=== PATIENT | female | born 1985 | race Caucasian/White ===

== ENCOUNTER 2023-01-03 18:33 | Outpatient (REF) | payer OTHER, SELFPAY ==
[2023-01-09 09:09] LABS: Age Gdln ACOG Testing Note (.); HPV Aptima Negative (Negative); IGP, Aptima HPV, rfx 16/18,45 Note (.)
== END 2023-01-03 18:34 | disposition home or self-care (01) ==
LOC: LAB 18:33
PROVIDERS: Visit Provider Obstetrics & Gynecology
DX: Z01.419 Encounter for gynecological examination (general) (routine) without abnormal findings (principal)
CPT/HCPCS: 87624; G0145

== ENCOUNTER 2025-01-07 14:03 | Outpatient (OUT) | payer OTHER, SELFPAY ==
--- OUTSIDE RECORDS SUMMARY | 2025-01-07 12:09 | XMS_ITS | Clinical Summary ---
Author Organization [facility] Healthcare Address [address] [place] [address] Care Team Providers Care Assessment Counselor Name Role Phone Bi Ledesma MD Primary Care Provider [phone] Allergies Active AllergyReactionsCriticalityNoted DateCommentsCat QhbmrgEyjepnd00/27/2023 Pollen NtiqbnnUmokvon25/27/2023 Medications MedicationSigDispense QuantityRefillsLast FilledStart DateEnd DateStatus busPIRone (Buspar) 10 MG tablet Take 10 mg by mouth in the morning and 10 mg before bedtime.Active FLUoxetine (PROzac) 20 MG capsule TAKE THREE CAPSULES BY MOUTH ONCE DAILYActive Family History Medical HistoryRelationNameCommentsDiabetesFatherHypertensionFatherMental illnessFatherCancerMaternal GrandfatherCancerPaternal GrandfatherCancerPaternal GrandmotherRelationNameStatusCommentsFatherAliveMaternal GrandfatherMotherAlive Paternal GrandfatherPaternal GrandmotherSon1 Social History Tobacco UseTypesPacks/DayYears UsedDateSmoking Tobacco: FormerCigarettes Tobacco Cessation:Counseling Given: Not Answered AUDIT-CAnswerDate RecordedQ1: How often do you have a drink containing alcohol? Monthly or less01/02/2023Q2: How many drinks containing alcohol do you have on a typical day when you are drinking?1 or Frequency of Binge DrinkingNot on file01/02/2023CommentsUnknownSex and Gender InformationValueDate RecordedSex Assigned at BirthNot on fileLegal OxxCgyvpa24/15/2023 11:08 PM EDT Gender IdentityNot on fileSexual OrientationNot on file Last Filed Vital Signs Vital SignReadingTime TakenCommentsBlood Kvkuxfev288/7411/04/2022 2:04 PM EDT Pulse--Temperature--Respiratory Rate--Oxygen Saturation--Inhaled Oxygen Concentration--Jzglxz61.5 kg (151 lb)01/03/2023 2:04 PM GKKTrmvdk844.4 cm (5') 03/29/2020 12:00 PM ESTBody Mass Index29.49003/29/2020 12:00 PM EST Plan of Treatment Not on file Insurance Care Teams Team MemberRelationshipSpecialtyStart DateEnd Date Bi Ledesma MD [facility] Pykqtvsc38/2/23
--- OUTSIDE RECORDS SUMMARY | 2025-01-07 12:09 | XMS_ITS | Clinical Summary ---
Author Organization [facility] Address [id number] [place] [address] Care Team Providers Care Radio Station Manager Name Role Phone Bi Ledesma DO Primary Care Provider [phone] Allergies Active AllergyReactionsCriticalityNoted DateCommentsCat Loczjp4205/11/2021ollen Opsrmcva60/10/2022 Medications MedicationSigDispense QuantityRefillsLast FilledStart DateEnd DateStatus calcium carbonate (OS-CONNOR) 600 mg (1,500 mg) tablet Take 600 mg by mouth in the morning and 600 mg in the evening. Take with meals. Active thiamine HCl (VITAMIN B-1) 100 mg tablet Take 100 mg by mouth in the morning.Active multivitamin capsule Take 1 capsule by mouth in the morning.Active busPIRone (BUSPAR) 10 mg tablet TAKE ONE TABLET BY MOUTH TWICE A DAY 60 tablet 01/04/2023ctive FLUoxetine (PROzac) 20 mg capsule TAKE THREE CAPSULES BY MOUTH ONCE DAILY 90 capsule 01/04/2023ctive montelukast (SINGULAIR) 10 mg tablet TAKE ONE TABLET BY MOUTH DAILY 30 tablet 01/04/2023ctive Active Problems ProblemNoted DateDiagnosed DatePre-operative cardiovascular examination 05/12/2021MI 50.0-59.9, adult05/12/2021 Social History Tobacco UseTypesPacks/DayYears UsedDateSmoking Tobacco: NeverSmokeless Tobacco: Never Tobacco Cessation:Counseling Given: No ChildcareAnswerDate AvpvzphbRiczhdnwzIvyrnic07/12/2019EmploymentAnswerDate QqkulcmpRzkxvwtqjxRzaichg03/12/2019CommentsUnknownSex and Gender InformationValueDate RecordedSex Assigned at BirthNot on fileLegal SexFemale 10/07/2014 11:43 AM EDTGender IdentityNot on fileSexual OrientationNot on file Last Filed Vital Signs Vital SignReadingTime TakenCommentsBlood Muyiftxt073/8003 10:00 AM EST Wlayu439905/12/2021 10:00 AM ESTTemperature--Respiratory Rate--Oxygen Saturation-- Inhaled Oxygen Concentration--Addoeb267.9 kg (271 lb)05/12/2021 10:00 AM EST Wdkylw344.4 cm (5')05/12/2021 10:00 AM ESTBody Mass Index52.9305/12/2021 10:00 AM EST Plan of Treatment Health MaintenanceDue DateLast DoneCommentsDepression Wwlwocehw00/27/1996Tobacco Mxarhanmn15/27/1996Adult BMI Hgudhhxck49/27/2002Pap Smear2004Influenza Uwnoepp34DTaP,Tdap and Td Vaccines (7 - Td or Tdap)07/09/2027 07/08/2017, 10/26/2002, 10/17/1988, Additional history exists Medical Devices Not on file Insurance Care Teams Team MemberRelationshipSpecialtyStart DateEnd Bi Ledesma DO [address] [facility], [place] [address] PCP - GeneralFamily Pdnkgalj50/21/22
--- OUTSIDE RECORDS SUMMARY | 2025-01-07 12:09 | XMS_ITS | Patient Health Record ---
Author Organization [facility] in [place] Address [address] [place] [address] Care Team Providers Care Surface Ship Usw Supervisor Name Role Phone Grazyna Armendariz Primary Care Provider [phone] Allergies No Known Allergies Reason For Referral No Information Medications Medication SIG (Take, Route, Frequency, Duration) Notes Start Date End Date Status Lexapro 20 MG 1 tablet Orally Once a day; Dura tion: 30 days 5ActiveSingulair 10 MG1 tablet Orally Once a day at HS; Duration: 30 days5ActiveMultivitaminActiveZyrTEC AllergyActiveSymbicort 160-4.5 MCG/ACT2 inhalations Inhalation BID; Duration: 30 days5Active hydrOXYzine HCl 25 MG1 tablet as needed Orally BID; Duration: 30 daysas needed for heveybt39/10/2025ActiveAlbuterol Sulfate HFA 108 (90 Base) MCG/ACT1 puff as needed Inhalation every 4 hrs5Active Social History Tobacco Use: Social History Observation Description Date Details (start date - stop date) Never Smoker NA - NA Tobacco Control (Standard) Question Answer Notes Tobacco use: Nonsmoker AUDIT-C (Standard) Question Answer Notes Did you have a drink containing alcohol in the p ast year? No Ifthtn1FuxpcedzjeauwjXguddere Problems Problem Type SNOMED Code ICD Code Onset Dates Problem Status W/U Status Risk Notes Problem Asthma (393966413) Asthma (J45.909) ActiveconfirmedProblemSeasonal allergy (708301753)Seasonal allergies (J30.2) ActiveconfirmedProblemMixed anxiety and depressive disorder (580952443)Anxiety and depression (F41.8)Activeconfirmed Vital Signs Heart Rate 62 /min 01/07/2025 Lojyvrjd25 %01/07/2025lood pressure lyuprqzoz78 mm Hg01/07/20256473Iafqjw21 in 01/07/2025lood pressure moucsweb191 mm Hg01/07/20257574Qbfxjc126 lbs103/09/2024MI 28.51 kg/m201/07/2025 Encounters Encounter Location Date Provider Diagnosis [address] [address] 10/09/2024 Grazynachey Sotelomer [address] [address] 01/07/2025Pamela Cramer[address] [address]/10/2025Pamela CramerAnxiety and depression F41.8 ; Asthma J45.909 ; Seasonal allergies J30.2 and Marijuana smoker F12.[address] [address]/14/2025 Grazyna CramerAsthma J45.909 and Anxiety and depression F41.[address] [address]/06/2025Pamela CramerIntoxication by drug F19.929 and Anxiety and depression F41.8 Assessments Encounter Date Diagnosis (ICD Code) Assessment Notes Treatment Notes Treatment Clinical Notes Section Notes 09/10/2024 Anxiety and depression (ICD-10 - F41.8) discussed counseling discussed lifestyle habits to support good mental health handouts given and referral sheet given for counseling fu 4 weeks, sooner if needed denies SI thinks buried childhood trauma 09/10/2024sthma (ICD-10 - J45.909)10/15/2024sthma (ICD-10 - J45.909)01/07/2025 Intoxication by drug (ICD-10 - F19.929)01/07/2025nxiety and depression (ICD-10 - F41.8)mood ok on tbbskyr4210/15/2024nxiety and depression (ICD-10 - F41.8) 09/10/2024Seasonal allergies (ICD-10 - J30.2)continue OTC qekjaw9309/10/2024 Marijuana smoker (ICD-10 - F12.90)had medical card?01/07/2025Other likely drink was spiked recheck K continue monitor if sx would recur fu for more testing Plan Of Treatment Pending Test Test Name Order Date CMP (COMP MET MCCORD) w/eGFR CKD-EPI 2024 Next Appt Details Provider Name:Grazyna lucia, 01/14/2025 11:00:00 AM, [address] [facility], [place], [address], Insurance Providers Payer Name Payer Address Payer Phone Subscriber Number Group Number Insured Name Patient Relationship to Insured Coverage Start Date Coverage End Date [employer] [address] ATTN [place], [place] [id number] Rajwinder Anders - patient is the insured Medical (General) History Surgical History Surgery Date(Month/Year) gastric sleeve tubal ligationgallbladder removedc section
--- OUTSIDE RECORDS SUMMARY | 2025-01-07 12:10 | XMS_ITS | CCD ---
Author Organization [facility] Care Team Providers Care President & Founder Name Role Phone JOSE, DR BI Thao Primary Care Unavailable KARASIK, DR MONTERROSO Consulting Unavailable KARASIK, DR MONTERROSO Admitting Unavailable KARASIK, DR MONTERROSO Attending Unavailable FURLONG, DR BI Thao Primary Care Unavailable KARASIK, DR MONTERROSO Consulting Unavailable KARASIK, DR MONTERROSO Admitting Unavailable KARASIK, DR MONTERROSO Attending Unavailable KARASIK, DR MONTERROSO Attending Unavailable FURLONG, DR BI Thao Primary Care Unavailable KARASIK, DR MONTERROSO Consulting Unavailable KARASIK, DR MONTERROSO Admitting Unavailable CANDY REYNOSO Attending Unavailable EDGARDO, CANDY Wilson Consulting Unavailable CANDY REYNOSO Admitting Unavailable FURLONG, DR BI Thao Primary Care Unavailable RICO, TEVIN Consulting Unavailable TEVIN GÓMEZ Admitting Unavailable FURLONG, DR BI Thao Primary Care Unavailable RICO, TEVIN Attending Unavailable KUNBong, DR OSMAR Torres Admitting Unavailable KUNBong, DR OSMAR Torres Attending Unavailable NIRU, DR OSMAR Torres Consulting Unavailable PHILLYLOGOGO, DR BI Thao Primary Care Unavailable NO FAMILY, PHYSICIAN Primary Care Provider Unava ilable DO Kiko Sanchez Emergency Provider [phone] Kiko Sanchez Admitting Unavailable Kiko Sanchez Attending Unavailable NO FAMILY, PHYSICIAN Primary Care Unavailable Unavailable Primary Care Provider UnavailPATY Mandujano Attending Unavailable Medications Current Medications MedicationDrug Class(es)DatesSig (Normalized)Sig (Original)cephalexin 500 mg oral capsule (1 source)Cephalosporin AntibacterialStart: 60-51-3346lelc 500 mg by mouth every eight hoursCephalexin Active 500 MG PO Every 8 hours 30 10 September 19, 2023 12:00amFLUoxetine 20 mg oral capsule (2 sources)Serotonin Reuptake InhibitorStart: 33-99-7997ocdb 1 capsule by mouth once dailyFluoxetine (Prozac) 20 mg capsule Active 20 MG PO Daily July 08, 2023 12:00am Completed/Discontinued Medications MedicationDrug Class(es)DatesSig (Normalized)Sig (Original)amoxicillin 875 mg oral tablet (1 source)Penicillin-class AntibacterialStart: 07-08-2023 End: 98-89-1263prph 875 mg by mouth twice dailyAmoxicillin Discontinued 875 MG PO Twice daily 20 July 08, 2023 12:00am September 19, 2023 6:38pmLORazepam 0.5 mg oral tablet (1 source)BenzodiazepineStart: 01-03-2025 End: 61-91-6394mdgf 1 dose by mouth once1 mg, Oral, ONCE, 1 dose, On 01/03/25 at 0100Start: 01-03-2025 End: 02-02-1587iqgq 1 dose by mouth once1 mg, Oral, ONCE, 1 dose, On 01/03/25 at 0100meclizine hydrochloride 12.5 mg oral tablet (1 source)AntiemeticStart: 01-03-2025 End: 43-03-1326qggw 1 dose by mouth once25 mg, Oral, ONCE, 1 dose, On 01/03/25 at 0100Start: 01-03-2025 End: 80-37-9278jxyy 1 dose by mouth once25 mg, Oral, ONCE, 1 dose, On 01/03/25 at 92375 ml ondansetron 2 mg/ml injection (1 source)Serotonin-3 Receptor AntagonistStart: 01-03-2025 End: mg, IntraVENous, ONCE, 1 dose, On 01/03/25 at 0100Start: 01-03-2025 End: mg, IntraVENous, ONCE, 1 dose, On 01/03/25 at 0100 microencapsulated potassium chloride 20 meq extended release oral tablet (2 sources)Start: 01-03-2025 End: 52-12-170183 mEq, IntraVENous, EVERY HOUR, 2 doses, First dose on 01/03/25 at 0115, Last dose on 01/03/25 at 0200, at 100 mL/hr, Potassium chloride doses are limited to a maximum of six consecutive dosesbefore reassessment of laboratory values is needed.Start: 01-03-2025 End: mEq, Oral, ONCE, 1 dose, On 01/03/25 at 0115, Do not crush or break. Do not crush, chew, or suck on tablet. Tablet may also be broken in half and each half swallowed separately. Problems Active Problems Problem ClassificationProblemDateDocumented DateEpisodic/ChronicDisorders of teeth and jaw (2 sources)Infection of tooth; Translations: [Periapical abscess without sinus] 00-90-2296NkclwghzUqmac and electrolyte disorders (2 sources)Hypokalemia; Translations: [Hypokalemia]Onset: EpisodicImmunizations and screening for infectious disease (6 sources)Encounter for screening for infections with a predominantly sexual mode of transmission; Translations: [Encounter for screening for human papillomavirus (HPV)]Onset: 19-19-5862GsjivvjkIspesg and vomiting (2 sources)Nausea and vomiting; Translations: [Nausea with vomiting, unspecified]Onset: 582945-29-5027YkkmashiCavjc skin disorders (1 source)Rash and other nonspecific skin eruption; Translations: [Rash and other nonspecific skin eruption]Onset: 94-03-8725AbrluwgtHhemdkvij; thrombophlebitis and thromboembolism (1 source)Phlebitis; Translations: [Phlebitis and thrombophlebitis of unspecified site]59-01-8828FfjrluxaFqumyjzkurrx (3 sources)CONTACT W/AND (SUSP) EXPOS COVID-19; Translations: [CONTACT W/AND (SUSP) EXPOS COVID-19]Onset: 03-02-2021 Past or Other Problems Problem ClassificationProblemDateDocumented DateEpisodic/ChronicOther female genital disorders (4 sources)Other specified noninflammatory disorders of vagina; Translations: [OTH SPEC NONINFLAMMATORY D/O VAGINA]Onset: 99-64-6387LbocjyllVtoev screening for suspected conditions (not mental disorders or infectious disease) (5 sources)Encounter for screening for malignant neoplasm of cervix; Translations: [Encounter for observation for other suspected diseases and conditions ruled out]Onset: 50-74-1488WceutiktIsxefuotcdvk (1 source)CONTACT W/AND (SUSP) EXPOS COVID-19; Translations: [CONTACT W/AND (SUSP) EXPOS COVID-19]Onset: 02-27-2021 Results Test NameValueInterpretationReference RangeFacilityAcetaminophenon 01-03-2025 Acetaminophen [Mass/Vol]ug/zAEfr97-71Mmlho Oroville HospitalComment on above:Performed By: #### HCG, ALCB, BMP, ACET, SALI, CDP #### [facility] [address] [place] [address] Dye Tank Tender: Mateo Ren MDAcetaminophen Levelon 81-34-1831Revfnlpvjtmmt [Mass/Vol]ug/mLLow10 - 30 ug/mLBon [facility] OhioInterpretation and review of laboratory resultsAbnormalBon [facility] [place] ResearchBMPon 28-74-2691Empnb gap [Moles/Vol]19 mmol/LHigh9 - 16 mmol/LBon [facility] HealthCalcium [Mass/Vol] 8.7 mg/dL8.6 - 10.4 mg/dLBon [facility] HealthChloride [Moles/Vol]104 mmol/L 98 - 107 mmol/LBon [facility] HealthCO2 [Moles/Vol]17 mmol/LLow20 - 31 mmol/L Bon [facility] HealthCreatinine [Mass/Vol]0.9 mg/dL0.6 - 0.9 mg/dLBon [facility] [place] ResearchEst, Glom Filt Rate82- PINFBon [facility] OhioComment on above: These results are not intended for use in patients <18 years of age. eGFR results are calculated without a race factor using the 2020 CKD-EPI equation. Careful clinical correlation is recommended, particularly when comparing to results calculated using previous equations. The CKD-EPI equation is less accurate in patients with extremes of muscle mass, extra-renal metabolism of creatine, excessive creatine ingestion, or following therapy that affects renal tubular secretion. Glucose [Mass/Vol]103 mg/oSZemh24 - 99 mg/dLBon [facility] ArizonaPANTA Systems HealthPotassium [Moles/Vol]3.0 mmol/LLow3.7 - 5.3 mmol/LBon [facility] HealthSodium [Moles/Vol]140 mmol/L136 - 145 mmol/LBon [facility] HospitalUrea nitrogen [Mass/Vol]12 mg/dL6 - 20 mg/dLBon [facility] HospitalBasic Metabolic Profon 78-45-9869Jmkfd gap [Moles/Vol]19 mmol/LHigh9-16[facility] Comment on above:Performed By: #### HCG, ALCB, BMP, ACET, SALI, CDP #### [facility] [address] [place] [address] Dye Tank Tender: CLAIRE Tangalcium [Mass/Vol]8.7 mg/dLNormal8.6-10.4City HospitalComment on above:Performed By: #### HCG, ALCB, BMP, ACET, SALI, CDP #### [facility] [address] [place] [address] Dye Tank Tender: CLAIRE Tanghloride [Moles/Vol]104 mmol/TBdkdzm71-602BqixmCity HospitalComment on above:Performed By: #### HCG, ALCB, BMP, ACET, SALI, CDP #### [facility] [address] [place] [address] Dye Tank Tender: Mateo Ren MDCO2 [Moles/Vol]17 mmol/BLav61-59YpwwkCity HospitalComment on above:Performed By: #### HCG, ALCB, BMP, ACET, SALI, CDP #### [facility] [address] [place] [address] Dye Tank Tender: CLAIRE Tangreatinine [Mass/Vol]0.9 mg/dLNormal0.6-0.9City HospitalComment on above:Performed By: #### HCG, ALCB, BMP, ACET, SALI, CDP #### [facility] [address] [place] [address] Dye Tank Tender: Mateo Ren MDGFR/1.73 sq M.predicted among non-blacks MDRD (S/P/Bld) [Vol rate/Area]82 mL/min/{1.73_m2}Normal>60City HospitalComment on above:Result Comment: These results are not intended for use in patients <18 years of age. eGFR results are calculated without a race factor using the 2020 CKD-EPI equation. Careful clinical correlation is recommended, particularly when comparing to results calculated using previous equations. The CKD-EPI equation is less accurate in patients with extremes of muscle mass, extra-renal metabolism of creatine, excessive creatine ingestion, or following therapy that affects renal tubular secretion.Performed By: #### HCG, ALCB, BMP, ACET, SALI, CDP #### [facility] [address] [place] [address] Dye Tank Tender: Mateo Ren MDGlucose [Mass/Vol]103 mg/xXCbhw40-51GumyvIndian Valley HospitalComment on above:Performed By: #### HCG, ALCB, BMP, ACET, SALI, CDP #### [facility] [address] [place] [address] Dye Tank Tender: CATHLEEN Tangotassium [Moles/Vol]3.0 mmol/LLow3.7-5.3MIndian Valley HospitalComment on above:Performed By: #### HCG, ALCB, BMP, ACET, SALI, CDP #### [facility] [address] [place] [address] Dye Tank Tender: REYNA Tangodium [Moles/Vol]140 mmol/MNxnhpi158-375OemznCity HospitalComment on above:Performed By: #### HCG, ALCB, BMP, ACET, SALI, CDP #### [facility] [address] [place] [address] Dye Tank Tender: Mateo Ren MDUrea nitrogen [Mass/Vol]12 mg/dLNormal6-20City HospitalComment on above:Performed By: #### HCG, ALCB, BMP, ACET, SALI, CDP #### [facility] [address] [place] [address] Dye Tank Tender: Mateo Ren [facility] with Auto Differentialon 44-39-5158Yxryplsdt (Bld) [#/Vol]0.12 10*3/uLBon [facility] Hospitaly HealthBasophils/100 WBC (Bld)2 %0 - 2 %[facility]y HealthEosinophils (Bld) [#/Vol]0.22 10*3/uLBon [facility] HealthEosinophils/100 WBC (Bld)3 %1 - 4 %[facility] Health Erythrocyte distribution width (RBC) [Ratio]12.7 %11.8 - 14.4 %[facility]y HealthHematocrit (Bld) [Volume fraction]35.0 %Low36.3 - 47.1 %Bon [facility]ey HealthHemoglobin (Bld) [Mass/Vol]12.1 g/dL11.9 - 15.1 g/dLBon [facility]ours MercSentara CarePlex HospitalImmature granulocytes (Bld) [#/Vol][facility] HealthImmature granulocytes/100 WBC (Bld)0 %0[facility]y HealthInterpretation and review of laboratory resultsAbnormalBon [facility] HealthLymphocytes/100 WBC (Bld)32 %24 - 43 %[facility]y HealthLymphocytes/100 WBC (Bld)2.49 %[facility] Hospitaly [facility] DaytonH (RBC) [Entitic mass]29.4 pg25.2 - 33.5 pgBon Secours [facility] Hospitaly [facility] DaytonHC (RBC) [Mass/Vol]34.6 g/dL28.4 - 34.8 g/dLBon Secours [facility] Hospitaly [facility] DaytonV (RBC) [Entitic vol]85.2 fL82.6 - 102.9 fLBon Secours [facility] HealthMonocytes/100 WBC (Bld)9 %3 - 12 %[facility] HealthMonocytes/100 WBC (Bld)0.68 %[facility]y HealthNeutrophils/100 WBC (Bld)54 %36 - 65 %[facility] HealthNucleated RBC/100 WBC (Bld) [Ratio]0.0 %0.0 per 100 WBCBon [facility] HospitalPlatelet mean volume (Bld) [Entitic vol]10.8 fL8.1 - 13.5 fLBon [facility] HospitalPlatelets (Bld) [#/Vol]315 10*3/uLBon [facility] HospitalRBC (Bld) [#/Vol]4.11 10*6/uL3.95 - 5.11 m/uLBon [facility] HospitalSegmented neutrophils/100 WBC (Bld)4.29 %Bon [facility] HospitalWBC other (Bld) [#/Vol] 7.8Bon [facility] - Sioux FallsCBC with Diffon 01-03-2025 Abs. Basophil0.12 k/uLNormal0.00-0.20City HospitalComment on above:Performed By: #### HCG, ALCB, BMP, ACET, SALI, CDP #### [facility] [address] [place] [address] Dye Tank Tender: Nata Tang.Imm.Granulocyte<0.47Jsjocy7.00-0.30City HospitalComment on above:Performed By: #### HCG, ALCB, BMP, ACET, SALI, CDP #### [facility] [address] [place] [address] Dye Tank Tender: Nata Tang.Neutrophil (Seg)4.29 k/uLNormal1.50-8.10 City HospitalComment on above:Performed By: #### HCG, ALCB, BMP, ACET, SALI, CDP #### [facility] [address] [place] [address] Dye Tank Tender: Mateo Ren MDBasophils/100 WBC (Bld)2 %Normal0-2MercPetaluma Valley HospitalComment on above:Performed By: #### HCG, ALCB, BMP, ACET, SALI, CDP #### [facility] [address] [place] [address] Dye Tank Tender: Mateo Ren MDEosinophils (Bld) [#/Vol]0.22 10*3/uLNormal 0.00-0.44City HospitalComment on above:Performed By: #### HCG, ALCB, BMP, ACET, SALI, CDP #### [place] [address] Dye Tank Tender: Mateo Ren MDEosinophils/100 WBC (Bld)3 %Normal1-4City HospitalComment on above:Performed By: #### HCG, ALCB, BMP, ACET, SALI, CDP #### [facility] [address] [place] [address] Dye Tank Tender: Mateo Ren MDErythrocyte distribution width (RBC) [Ratio]12.7 %Yrihfd84.8-14.4City HospitalComment on above:Performed By: #### HCG, ALCB, BMP, ACET, SALI, CDP #### [place] [address] Dye Tank Tender: Mateo Ren MDHematocrit (Bld) [Volume fraction]35.0 %Low 36.3-47.1MIndian Valley HospitalComment on above:Performed By: #### HCG, ALCB, BMP, ACET, SALI, CDP #### [facility] [address] [place] [address] Dye Tank Tender: Mateo Ren MDHemoglobin (Bld) [Mass/Vol]12.1 g/dLNormal 11.9-15.1MIndian Valley HospitalComment on above:Performed By: #### HCG, ALCB, BMP, ACET, SALI, CDP #### [facility] [address] [place] [address] Dye Tank Tender: Mateo Ren MDImmature granulocytes/100 WBC (Bld)0 %Normal0 City HospitalComment on above:Performed By: #### HCG, ALCB, BMP, ACET, SALI, CDP #### [facility] [address] [place] [address] Dye Tank Tender: Chilango Tangmphocytes (Bld) [#/Vol]2.49 10*3/uLNormal 1.10-3.70City HospitalComment on above:Performed By: #### HCG, ALCB, BMP, ACET, SALI, CDP #### [facility] [address] [place] [address] Dye Tank Tender: Dheeraj Tanghocytes/100 WBC (Bld)32 %Ksqpji74-30QppedCity HospitalComment on above:Performed By: #### HCG, ALCB, BMP, ACET, SALI, CDP #### [facility] [address] [place] [address] Dye Tank Tender: ESTEBAN Tang (RBC) [Entitic mass]29.4 ziAowujh27.2-33.5 City HospitalComment on above:Performed By: #### HCG, ALCB, BMP, ACET, SALI, CDP #### [facility] [address] [place] [address] Dye Tank Tender: ESTEBAN TangC (RBC) [Mass/Vol]34.6 g/iBVmxusy90.4-34.8 City HospitalComment on above:Performed By: #### HCG, ALCB, BMP, ACET, SALI, CDP #### [facility] [address] [place] [address] Dye Tank Tender: AGUEDA Tang (RBC) [Entitic vol]85.2 kMBifjno55.6-102.9 City HospitalComment on above:Performed By: #### HCG, ALCB, BMP, ACET, SALI, CDP #### [facility] [address] [place] [address] Dye Tank Tender: SATHYA Tangonocytes (Bld) [#/Vol]0.68 10*3/uLNormal 0.10-1.20City HospitalComment on above:Performed By: #### HCG, ALCB, BMP, ACET, SALI, CDP #### [facility] [address] [place] [address] Dye Tank Tender: SATHYA Tangonocytes/100 WBC (Bld)9 %Normal3-12City HospitalComment on above:Performed By: #### HCG, ALCB, BMP, ACET, SALI, CDP #### [address] [address] Dye Tank Tender: Lu Tangutrophil (Seg)54 %Ecocsj92-79QtjdxCity HospitalComment on above:Performed By: #### HCG, ALCB, BMP, ACET, SALI, CDP #### [address] [address] Dye Tank Tender: Mateo Ren MDNRBC Automated0.0 per 100 WBCNormal0.0City HospitalComment on above:Performed By: #### HCG, ALCB, BMP, ACET, SALI, CDP #### [address] [address] Dye Tank Tender: CATHLEEN Tanglatelet mean volume (Bld) [Entitic vol]10.8 fL Normal8.1-13.5City HospitalComment on above:Performed By: #### HCG, ALCB, BMP, ACET, SALI, CDP #### [facility] [address] [place] [address] Dye Tank Tender: CATHLEEN Tanglatelets (Bld) [#/Vol]315 10*3/lEKnyosh290-983 City HospitalComment on above:Performed By: #### HCG, ALCB, BMP, ACET, SALI, CDP #### [address] [address] Dye Tank Tender: Mateo Ren [facility] ([facility]) [#/Vol]4.11 10*6/uLNormal3.95-5.11 City HospitalComment on above:Performed By: #### HCG, ALCB, BMP, ACET, SALI, CDP #### [address] [address] Dye Tank Tender: Mateo Ren [facility]DMETROPOL[facility]AN [facility] ([facility]) [#/Vol]7.8 10*3/uLNormal3.5-11.3MIndian Valley HospitalComment on above:Performed By: #### HCG, ALCB, BMP, ACET, SALI, CDP #### [address] [address] Dye Tank Tender: Mateo Ren MDDrug Scr, Abuse, Uron 01-03-2025 Cannabinoid(s),UrPositiveAbrmalNEGCity HospitalComment on above:Result Comment: Cutoff: 50 ng/mlPerformed By: #### AME #### [address] [address] Dye Tank Tender: Mateo Ren MDInterpretive InfoAssay provides rapid clinical screening only. Presumptive positive results [facility] HospitalComment on above:Result Comment: legal purposes should be confirmed by another method. To request confirmation, please call the lab within 7 days of sample submission.Performed By: #### AME #### [facility] [address] [place] [address] Dye Tank Tender: Mateo Ren MDAmphetamine(s),UrNegativeNormalNEGCity HospitalComment on above:Result Comment: Cutoff: 1000 ng/mL Performed By: #### AME #### [address] [address] Dye Tank Tender: Mateo Ren MDBarbiturate(s),UrNegativeNormalNEGCity HospitalComment on above:Result Comment: Cutoff: 200 ng/ml Performed By: #### AME #### [address] [address] Dye Tank Tender: Mateo Ren MDBenzodiazepine(s)NegativeNormalNEGCity HospitalComment on above:Result Comment: Cutoff: 200 ng/ml Performed By: #### AME #### [address] [address] Dye Tank Tender: CLAIRE Tangocaine MetaboliteNegativeAultman Orrville HospitalComment on above:Result Comment: Cutoff: 300 ng/ml Performed By: #### AME #### [address] [address] Dye Tank Tender: Monica Tangtanyl, UrineNegativeNormalNEGCity HospitalComment on above:Result Comment: Cutoff: 5 ng/mlPerformed By: #### AME #### [address] [address] Dye Tank Tender: SATHYA Tangethadone Ql (U)NegativeNormalNEGCity HospitalComment on above:Result Comment: Cutoff: 300 ng/ml Performed By: #### AME #### [address] [address] Dye Tank Tender: Mateo Ren MDOpiate(s), UrNegativeNoalNEGCity HospitalComment on above:Result Comment: Cutoff: 300 ng/mlPerformed By: #### AME #### [address] [address] Dye Tank Tender: Mateo Ren MDOxycodone, UrineNegativeNormalNEGCity HospitalComment on above:Result Comment: Cutoff: 100 ng/ml Performed By: #### AME #### [facility] [address] [place] [phone] Dye Tank Tender: CATHLEEN Tanghencyclidine, UrNegativeNormalNEGCity HospitalComment on above:Result Comment: Cutoff: 25 ng/mlPerformed By: #### AME #### [facility] [address] [id number] Dye Tank Tender: Mateo Ren MDEthanolon 87-80-7680Ejdwbth percent0.049 %High NINF - 0.010 %Bon [facility] HospitalEthanolamine [Mass/Vol]49 mg/dLHighNINF - 10 mg/dLBon [facility] HospitalEthanol Alcoholon 91-76-2955Axylvys [Mass/Vol]49 mg/dLHigh<10City HospitalComment on above:Performed By: #### HCG, ALCB, BMP, ACET, SALI, CDP #### [facility] [address] [place] [phone] Dye Tank Tender: Mateo Ren MDEthanol percent0.049 %High<0.010City HospitalComment on above:Performed By: #### HCG, ALCB, BMP, ACET, SALI, CDP #### [facility] [place] [address] [phone] Dye Tank Tender: Mateo Ren MDHCG Qualitative, Serumon 45-12-6491HSS ( test) QlNegativeNEGATIVELifepoint HealthComment on above: Specimens with hCG levels near the threshold of the test (25 mIU/mL) may give a negative or indeterminate result. In such cases, another test should be performed with a new specimen in 48-72 hours. If early is suspected clinically in this setting, correlation with quantitative serum b-hCG level is suggested. [facility] has confirmed the use of plasma for this test. This has not been cleared or approved by the U.S. Food and Drug Administration. The FDA has determined that such clearance is not necessary. Bon [facility] HospitalHCG Screen, Bloodon 98-83-7587MAT Screen, BloodNegative NormalNEGMerMercy Medical Center Merced Community CampusComment on above:Result Comment: Specimens with hCG levels near the threshold of the test (25 mIU/mL) may give a negative or indeterminate result. In such cases, another test should be performed with a new specimen in 48-72 hours. If early is suspected clinically in this setting, correlation with quantitative serum b-hCG level is suggested. [facility] has confirmed the use of plasma for this test. This has not been cleared or approved by the U.S. Food and Drug Administration. The FDA has determined that such clearance is not necessary.Performed By: #### HCG, ALCB, BMP, ACET, SALI, CDP #### [facility] [address] [place] [address] Dye Tank Tender: Mateo Ren MDNo Panel Informationon 34-86-8468Cfi [facility] HealthInterpretation and review of laboratory resultsAbnormalBon SecFirelands Regional Medical CenterBon [facility] HospitalSalicylateon 59-18-9814Hnzgxzqozvq [Mass/Vol]mg/dL0.0 - 10.0 mg/dLBon [facility]ours [facility]cy HealthSalicylate<0.5Normal 0.0-10.0City HospitalComment on above:Performed By: #### HCG, ALCB, BMP, ACET, SALI, CDP #### [facility] [address] [place] [address] Dye Tank Tender: Mateo Ren MDUrine Drug Screenon 50-27-8154Abpbxhbkqtni Ql (U)NegativeNEGATIVEBon SecT[facility] HealthComment on above:Cutoff: 1000 ng/mL Barbiturates Screen Ql (U)NegativeNEGATIVEBon [facility]ours [facility]cy HealthComment on above:Cutoff: 200 ng/mlBenzodiazepines Ql (U)NegativeNEGATIVEBon [facility] Hospitaly HealthComment on above:Cutoff: 200 ng/mlCannabinoids Screen Ql (U)Positive AbnormalNEGATIVEBon [facility]ours [facility] HealthComment on above:Cutoff: 50 ng/mlCocaine Ql (U)NegativeNEGATIVEBon [facility] HospitalComment on above:Cutoff: 300 ng/mlfentaNYL Ql (U)NegativeNEGATIVEBon [facility] HospitalComment on above: Cutoff: 5 ng/mlInterpretation and review of laboratory resultsAbnormalBon [facility] HospitalMethadone Ql (U)NegativeNEGATIVESentara [facility] Health Comment on above:Cutoff: 300 ng/mlOpiates Screen Ql (U)NegativeNEGATIVEBon [facility] HospitalComment on above:Cutoff: 300 ng/mloxyCODONE Ql (U)Negative NEGATIVEBon [facility] HospitalComment on above:Cutoff: 100 ng/mlPhencyclidine Ql (U)NegativeNEGATIVERetreat Doctors' Hospitalment on above:Cutoff: 25 ng/ml Test InformationAssay provides rapid clinical screening only. Presumptive positive results for legal purposes should be confirmed by another method. To request confirmation, please call the lab within 7 days of sample submission.Bon [facility] - Sioux FallsCHLAMYDIA/GONOCOCCUS JUVE (SWAB/URINE/PAPon 31-14-5352Yjuoimiws trachomatis, NAANegativeNormalNegativeOhio State Health SystemComment on above:Performed By: #### CT/NGNA #### [facility] [address] [place] [address] Dr. Ivonne MoralesNeisseria gonorrhoeae, NAANegativeNormalNegativeOhio State Health SystemComment on above:Performed By: #### CT/NGNA #### [facility] [address] [place] [address] Dr. Ivonne MoralesVAGINITIS/VAGINOSIS DNA PROBEon 49-43-9313Gxylopq speciesNegative NormalNegativeOhio State Health SystemComment on above:Performed By: #### VAGINT #### [facility] [address] [place] [address] Dr. Ivonne Gallardoerellsherwin vaginalisNegativeNormalNegativeOhio State Health System Comment on above:Performed By: #### VAGINT #### [facility] [address] [place] [address] Dr. Ivonne Gruberhomonas vaginalisNegativeNormalNegativeOhio State Health System Comment on above:Performed By: #### VAGINT #### [facility] [address] [address] [address] Ivonne Parsons ACOG PANEL 2: 30 to 63on 06-14-2021..NormalOhio State Health SystemComment on above:Result Comment: Performed at: WBPerformed By: #### CVDTBH, CVDAGS #### [facility] [address] [place] [address] Osmany KarenAge Gdln ACOG Jxrcpja29-39VzhzujOikCincinnati VA Medical CenterComment on above:Performed By: #### CVDTBH, CVDAGS #### [facility] [address] [place] [address] Osmany KarenDIAGNOSIS:CommentSalem Regional Medical CenterComment on above:Result Comment: NEGATIVE FOR INTRAEPITHELIAL LESION OR MALIGNANCY. Performed at: WBPerformed By: #### CVDTBH, CVDAGS #### [facility] [address] [place] [address] Osmany KarenHPV AptimaNegativeNormalNegDiley Ridge Medical CenterComment on above:Result Comment: This nucleic acid amplification test detects fourteen high-risk HPV types (16,18,31,33,35,39,45,51,52,56,58,59,66,68) without differentiation. Performed at: =GPerformed By: #### CVDTBH, CVDAGS #### [facility] [address] [place] [address] Osmany KarenMethodology:CommentNoCincinnati VA Medical CenterComment on above: Result Comment: This liquid based ThinPrep(R) pap test was screened with the use of an image guided system. Performed at: WBPerformed By: #### CVDTBH, CVDAGS #### [facility] [address] [place] [address] Osmany KarenNote:CommentSalem Regional Medical CenterComascension borgess allegan hospital on above:Result Comment: The Pap smear is a screening test designed to aid in the detection of premalignant and malignant conditions of the uterine cervix. It is not a diagnostic procedure and should not be used as the sole means of detecting cervical cancer. Both false-positive and false-negative reports do occur. . Performed at: WBPerformed By: #### CVDTBH, CVDAGS #### [facility] [address] [place] [address] Osmany KarenPerformed by:CommentSalem Regional Medical CenterComascension borgess allegan hospital on above: Result Comment: Stephanie Ballard, [employer]ss Architect (ASCP) Performed at: WBPerformed By: #### CVDTBH, CVDAGS #### [facility] [address] [place] [address] Osmany KarenSpecimen adequacy:[facility] on above:Result Comment: Satisfactory for evaluation. No endocervical component is identified. Performed at: WBPerformed By: #### CVDTBH, CVDAGS #### [facility] [address] [place] [address] Osmany KarenCHLAMYDIA/GONOCOCCUS JUVE (SWAB/URINE/PAPon 78-66-7711Fpztcwevw trachomatis, NAANegativeNormalNegativeOhio State Health SystemComment on above: Performed By: #### CT/NGNA #### [facility] [address] [place] [address] Dr. Ivonne MoralesNeisseria gonorrhoeae, NAANegativeNormalNegativeThe [facility] DaytonComment on above:Performed By: #### CT/NGNA #### [facility] [address] [place] [address] Dr. Ivonne MoralesVAGINITIS/VAGINOSIS DNA PROBEon 80-54-0640Eohuopd speciesNegative NormalNegativeThe [facility] DaytonComment on above:Performed By: #### VAGINT #### [facility] [address] [place] [address] Dr. Ivnone Cruzdnerella vaginalisPositiveAbnormalNegativeOhio State Health SystemComment on above:Performed By: #### VAGINT #### [facility] [address] [place] [address] Dr. Ivonne MoralesTrichomonas vaginalisNegativeNormalNegativeOhio State Health System Comment on above:Performed By: #### VAGINT #### [facility] [address] [address] [address] Coronado ChangEXTRA URINE SPECIMENon 09-59-3944WLFXDWWTzwxlbCqlnc Diagnostics Comment on above:Result Comment: An extra specimen was received with no test requested. The specimen will be maintained in storage in case additional testing is needed. Please call the client service department for further assistance. NO COLLECTION DATE RECEIVED. WE HAVE USED THE DATE THE SPECIMEN WAS RECEIVED BY THIS LABORATORY THE COLLECTION DATE. IF THIS IS INCORRECT, PLEASE CONTACT CLIENT SERVICES. PHONE NUMBER: [phone] By: #### XUPB #### [facility] [address] [employer]: Ana Ocampo M.D. #### [id number] #### [facility]/[address] [place], [place] [employer] Feeder: Kiko Goyal M.D.,PhDEXTRA URINE SPECIMENNormalQuest DiagnosticsComment on above:Performed By: #### XUPB #### [facility] [address] [employer]: Ana Ocampo M.D. #### [id number] #### [facility]/[place] [address] [place], [place] [employer] Feeder: Kiko Goyal M.D.,PhDSTI INCREASED RISK PANELon 05-02-2021 ASSAY DETAILSNormalQuest DiagnosticsComment on above:Result Comment: TEST NOT PERFORMED No specimen received.Performed By: #### XUPB #### [facility] [address] [employer]: Ana Ocampo M.D. #### [id number] #### [facility]/[place] [address] [place], [place] [employer] Feeder: Kiko Goyal M.D.,PhDCHLAMYDIA TRACHOMATIS RNA, TMA, UROGENITALNormalQuest DiagnosticsComment on above:Result Comment: URINE MUST BE SUBMITTED IN AN APTIMA TEST NOT PERFORMED No suitable specimen received. Please review the test requirements at [email or web address] By: #### XUPB #### [facility] [address] [place] [id number] [employer]: Ana Ocampo M.D. #### [id number] #### [facility]/[address] [place], [place] [employer] Feeder: Kiko Goyal M.D.,PhDMYCOPLASMA GENITALIUM, rRNA, TMANormal [facility] DiagnosticsComment on above:Result Comment: URINE NOT ACCEPTABLE TEST NOT PERFORMED No specimen received.Performed By: #### XUPB #### [facility] [address] [address] [facility] [address] [place] [id number] [employer]: Ana Ocampo M.D. #### [id number] #### [facility]/[address] [place], [place] [employer] Feeder: Kiko Goyal M.D.,PhDSURESWAB(R) TRICHOMONAS VAGINALIS RNA, QL, TMANormalQuest DiagnosticsComment on above:Result Comment: TEST NOT PERFORMED No specimen received.Performed By: #### XUPB #### [facility] [place] [id number] [employer] Machine Feeder: Ana Ocampo M.D. #### [id number] #### [facility]/[place] [id number] [facility] [place], [place] [employer] Feeder: Kiko Goyal M.D.,PhDCOMPREHENSIVE METABOLIC PANELon 27-08-8730Kvpuyqg [Mass/Vol]3.9 g/dLNormal3.6-5.1Quest DiagnosticsComment on above:Performed By: #### 23730, 7600 #### [facility] of [address], [address] [place] [address] [employer] Feeder: Jorge Byers MDAlbumin/Globulin [Mass ratio]1.4 {ratio}Normal 1.0-2.5Quest DiagnosticsComment on above:Performed By: #### 36418, 7600 #### [facility] of [address], [address] [place] [address] [employer] Feeder: Jorge Byers MDALP [Catalytic activity/Vol]60 U/VHzhjkm73-820 [facility] DiagnosticsComment on above:Performed By: #### 97174, 7600 #### [facility] of [address], [address] [place] [address] [employer] Feeder: Jorge Byers MDALT [Catalytic activity/Vol]10 U/LNormal6-29 [facility] DiagnosticsComment on above:Performed By: #### 85042, 7600 #### [facility] of [place] [address] [employer] Feeder: Jorge Byers MDAST [Catalytic activity/Vol]13 U/PPbpkej09-61 [facility] DiagnosticsComment on above:Performed By: #### 02174, 7600 #### [facility] of [place] [address] [employer] Feeder: Jorge Byers MDBilirubin [Mass/Vol]0.4 mg/dLNormal0.2-1.2 Quest DiagnosticsComment on above:Performed By: #### 25764, 7600 #### [facility] of [address], [address] [place] [address] [employer] Feeder: Jorge Byers MDBUN/CREATININE RATIONOT APPLICABLENormal6-22 [facility] DiagnosticsComment on above:Performed By: #### 49643, 7600 #### [facility] of [place] [address] [employer] Feeder: Jorge Byers MDCalcium [Mass/Vol]8.8 mg/dLNormal8.6-10.2Quest DiagnosticsComment on above:Performed By: #### 70094, 7600 #### [facility] of [address], [address] [place] [address] [employer] Feeder: Jorge Byers MDChloride [Moles/Vol]107 mmol/ECphaaw03-362 [facility] DiagnosticsComment on above:Performed By: #### 41480, 7600 #### [facility] of [address], [address] [place] [address] [employer] Feeder: Jorge Byers MDCO2 [Moles/Vol]23 mmol/XCnvgta04-89Lyuim DiagnosticsComment on above:Performed By: #### 10412, 7600 #### [facility] of [place] [address] [employer] Feeder: Jorge RANGELreatinine [Mass/Vol]0.70 mg/dLNormal0.50-1.10 [facility] DiagnosticsComment on above:Performed By: #### 37324, 7600 #### [facility] of [address], [address] [place] [address] [employer] Machine Feeder: Jorge BolesFR NON-AFR. HNIWDUXP125 mL/min/1.32y7Kdnlur> OR = 60Quest DiagnosticsComment on above:Performed By: #### 70368, 7600 #### [facility] of [place] [address] [employer] Feeder: Jorge Byers MDGFR/1.73 sq M.predicted among blacks MDRD (S/P/Bld) [Vol rate/Area]127 mL/min/{1.73_m2}Normal> OR = 60[facility] Comment on above:Performed By: #### 04863, 7600 #### [facility] of [place] [address] [employer] Feeder: Jorge Byers MDGlobulin (S) [Mass/Vol]2.8 g/dLNormal1.9-3.7 Quest DiagnosticsComment on above:Performed By: #### 01745, 7600 #### [facility] of [place] [address] [employer] Feeder: Jorge Byers MDGlucose [Mass/Vol]87 mg/fNWiellw28-45Qkiyl DiagnosticsComment on above:Result Comment: Fasting reference intervalPerformed By: #### 02797, 7600 #### [facility] of [address], [address] [place] [address] [employer] Feeder: Jorge Byers MDPotassium [Moles/Vol]4.2 mmol/LNormal3.5-5.3 [facility] DiagnosticsComment on above:Performed By: #### 17565, 7600 #### [facility] of [place] [address] [employer] Feeder: Jorge Byers MDProtein [Mass/Vol]6.7 g/dLNormal6.1-8.1Quest DiagnosticsComment on above:Performed By: #### 92656, 7600 #### [facility] of [address], [address] [place] [address] [employer] Feeder: Jorge Byers MDSodium [Moles/Vol]138 mmol/VUznqjp662-951Aueub DiagnosticsComment on above:Performed By: #### 85429, 7600 #### [facility] of [place] [address] [employer] Feeder: Jorge Byers MDUrea nitrogen [Mass/Vol]11 mg/dLNormal7-25 Quest DiagnosticsComment on above:Performed By: #### 30141, 7600 #### [facility] of [place] [address] [employer] Feeder: Jorge Byers MDLIPID PANEL, STANDARDon 17-72-6235Ydjrgwcemmb [Mass/Vol]152 mg/dLNormal<200Quest DiagnosticsComment on above:Order Comment: FASTING:YES FASTING: YESPerformed By: #### 16560, 7600 #### [facility] [place] [address], [address] [employer] Machine Feeder: Jorge RANGELholesterol in HDL [Mass/Vol]54 mg/dLNormal> OR = 50Quest DiagnosticsComment on above:Order Comment: FASTING:YES FASTING: YESPerformed By: #### 04390, 7600 #### [facility] [address], [address] [place] [address] [employer] Feeder: Jorge RANGELholesterol in LDL [Mass/Vol]81 mg/dLNormal [facility] DiagnosticsComment on above:Order Comment: FASTING:YES FASTING: YESResult Comment: Reference range: <100 Desirable range <100 mg/dL for primary prevention; <70 mg/dL for patients with CHD or diabetic patients with > or = 2 CHD risk factors. LDL-C is now calculated using the Avtar calculation, which is a validated novel method providing better accuracy than the Friedewald equation in the estimation of LDL-C. Mariano PÉREZ et al. ANGELA. 2013;310(19): 7157-7992 (http://education.[employer]yl[employer]/faq/LOE117)Performed By: #### 63425, 7600 #### [facility] [address], [address] [place] [address] [employer] Machine Feeder: Jorge Munguia.total/Cholesterol in HDL [Mass ratio]2.8 {ratio}Normal<5.0Quest DiagnosticsComment on above:Order Comment: FASTING:YES FASTING: YESPerformed By: #### 30115, 7600 #### [facility] [address], [address] [place] [address] [employer] Machine Feeder: Jorge VALLEJO HDL CRLPBTQAPNA78 mg/dL (calc)Normal<130 [facility] DiagnosticsComment on above:Order Comment: FASTING:YES FASTING: YESResult Comment: For patients with diabetes plus 1 major ASCVD risk factor, treating to a non-HDL-C goal of <100 mg/dL (LDL-C of <70 mg/dL) is considered a therapeutic option.Performed By: #### 94658, 7600 #### [facility] [address], [address] [place] [address] [employer] Feeder: Jorge Byers MDTriglyceride [Mass/Vol]85 mg/dLNormal<150Quest DiagnosticsComment on above:Order Comment: FASTING:YES FASTING: YESPerformed By: #### 99011, 7600 #### [facility] [address], [address] [place] [address] [employer] Feeder: Jorge Byers MDCovid-19 PCR (CVDTB)on 37-35-3850DXOI-CoV-2 (COVID-19) RNA JUVE+probe Ql (Unsp spec)Not detectedNormalNOT DETECTEDThe [facility] DaytonComment on above:Result Comment: This test is not yet approved or cleared by the [place] FDA. When there are no FDA-approved or cleared tests available, and other criteria are met, FDA can make tests available under an emergency access mechanism called an Emergency Use Authorization (EUA). The EUA for this test is supported by the [place] of Health and Human Service's (HHS's) declaration that circumstances exist to justify the emergency use of in vitro diagnostics for the detection and/or diagnosis of the virus that causes COVID-19. This EUA will remain in effect (meaning this test can be used) for the duration of the COVID-19 declaration justifying emergency of IVDs, unless it is terminated or revoked by FDA (after which the test may no longer be used). When diagnostic testing is negative, the possibility of a false negative should be considered in the context of a patient's recent exposures and the presence of clinical signs and symptoms consistent with SARS-CoV-2.Performed By: #### CVDTBH #### [facility] [address] [place] [address] Dr. Ivonne MoralesCHLAMYDIA/GONOCOCCUS JUVE (SWAB/URINE/PAPon 62-02-0572Exqauatgk trachomatis, NAANegativeNormalNegativeOhio State Health SystemComment on above: Performed By: #### CT/NGNA #### [facility] [address] [place] [address] Dr. Yilan ChangNeisseria gonorrhoeae, NAANegativeNormalNegativeOhio State Health SystemComment on above:Performed By: #### CT/NGNA #### [facility] [address] [place] [address] Dr. Ivonne MoralesVAGINITIS/VAGINOSIS DNA PROBEon 28-21-8535Marytvd speciesNegative NormalNegativeOhio State Health SystemComment on above:Performed By: #### VAGINT #### [facility] [address] [place] [address] Dr. Ivonne Gallardoerella vaginalisNegativeNormalNegativeOhio State Health System Comment on above:Performed By: #### VAGINT #### [facility] [address] [place] [address] Dr. Ivonne MoralesTrichomonas vaginalisNegativeNormalNegativeOhio State Health System Comment on above:Performed By: #### VAGINT #### [facility] [address] [place] [address] Dr. Ivonne MoralesCovid-19 PCR (CVDBOSTON HOSP[facility] FOR W[facility])on 07-39-4934XAAS-CoV-2 (COVID-19) RNA JUVE+probe Ql (Unsp spec)Not detectedNormalNOT DETECTEDOhio State Health System Comment on above:Result Comment: This test is not yet approved or cleared by the [place] FDA. When there are no FDA-approved or cleared tests available, and other criteria are met, FDA can make tests available under an emergency access mechanism called an Emergency Use Authorization (EUA). The EUA for this test is supported by the [place] of Health and Human Service's (HHS's) declaration that circumstances exist to justify the emergency use of in vitro diagnostics for the detection and/or diagnosis of the virus that causes COVID- 19. This EUA will remain in effect (meaning this test can be used) for the duration of the COVID-19 declaration justifying emergency of IVDs, unless it is terminated or revoked by FDA (after which the test may no longer be used). When diagnostic testing is negative, the possibility of a false negative should be considered in the context of a patient's recent exposures and the presence of clinical signs and symptoms consistent with SARS-CoV-2.Performed By: #### CVDTBH #### [facility] [address] [place], [place] [address] Dr. Ivonne Zimmermand-19 PCR ([facility])on 54-13-8477ALUY-CoV-2 (COVID-19) RNA JUVE+probe Ql (Unsp spec)Not detectedNormalNOT DETECTEDThe [facility] Comment on above:Result Comment: This test is not yet approved or cleared by the [place] FDA. When there are no FDA-approved or cleared tests available, and other criteria are met, FDA can make tests available under an emergency access mechanism called an Emergency Use Authorization (EUA). The EUA for this test is supported by the Metal Furniture Assembler of Health and Human Service's (HHS's) declaration that circumstances exist to justify the emergency use of in vitro diagnostics for the detection and/or diagnosis of the virus that causes COVID- 19. This EUA will remain in effect (meaning this test can be used) for the duration of the COVID-19 declaration justifying emergency of IVDs, unless it is terminated or revoked by FDA (after which the test may no longer be used). When diagnostic testing is negative, the possibility of a false negative should be considered in the context of a patient's recent exposures and the presence of clinical signs and symptoms consistent with SARS-CoV-2.Performed By: #### CVDTB, CVDAGS #### [facility] [address] [place], [place] [address] Osmany KarenSYMPTOMATIC COVID-19 ANTIGENon 61-14-5596XRY StatementSEE BELOW NormalThe [facility] DaytonComment on above:Result Comment: This test has not been FDA cleared or approved, but has been authorized by the FDA under an Emergency Use Authorization (EUA) for use by authorized laboratories certified under CLIA that meet the requirements to perform moderate or high complexity testing. This test has been authorized only for the detection of proteins from SARS-CoV-2, not for any other viruses or pathogens. The emergency use of this test is authorized for the duration of the declaration that circumstances exist justifying the authorization of emergency use of in vitro diagnostic tests for detection and/or diagnosis of Covid-19 under section 564(b)(1) of the Act, 21 U.S.C. 360bbb-3(b)(1), unless the declaration is terminated or authorization is revoked sooner.Performed By: #### CVDTBH, CVDAGS #### [facility] [address] [place], [place] [address] Osmany PatiñoCvibtOXSZ-WkV-0 (COVID-19) RNA JUVE+probe Ql (Unsp spec)NegativeNormal NEGATIVEThe [facility] DaytonComment on above:Result Comment: CONFIRMATION BY PCR PENDING PER CDC GUIDELINES/ SYMPTOMATIC PATIENT.Performed By: #### CVDTBH, CVDAGS #### [facility] [address] [place], [place] [address] Osmany Medeiros Vital Signs Date TimeVital SignValuePerforming KrcerrwhjDamomjur01-48-6088 03:30-0500 Diastolic blood kugkogff58 mm[Hg]Levy Clifford DO Work Phone: Over 40 Females [facility] HospitalMercariOdnwdm82-15-7559 03:30-0500Heart rate64 /minJoseph Venessa DO Work Phone: [employer] [facility] HospitalMercariZvakeu54-66-9960 03:30-0500 Respiratory rate15 /minJoseph [facility] DO Work Phone: [employer] [facility] ArizonaLive [employer] [facility] Cytuax11-25-0474 03:30-9381DvU3% (BldA) [Mass fraction]99 %Levy Clifford DO Work Phone: [employer] [facility] HospitalPyodlg16-37-8838 03:30-0500Systolic blood iynkriat339 mm[Hg]Levy Clifford DO Work Phone: [employer] [facility] Oisjxr58-23-5097 00:30-0400Body dnpedbvkvfb98.81 [degF]Levy Clifford [employer] Work Phone: Bon [facility] ArizonaLive [employer] [facility] Ahovon47-72-9593 18:38-0400Body ympwxw993.4 cmPHYSICIAN NO [facility]07-18-2024 18:38-0400Body hxbouqltqhs82 [degF]PHYSICIAN NO [facility]07-18-2024 18:38-0400Body ybybok52.1 kgPHYSICIAN NO [facility]07-18-2024 18:38-0400Diastolic blood rpckezad50 mm[Hg] PHYSICIAN NO [facility]07-18-2024 18:38-0400Heart rate64 /minPHYSICIAN NO [facility]07-18-2024 18:38-0400Respiratory rate20 /minPHYSICIAN NO [facility]07-18-2024 18:38-6327CdX0% (BldA) [Mass fraction]98 %PHYSICIAN NO [facility]07-18-2024 18:38-0400Systolic blood jcgtvxze521 mm[Hg]PHYSICIAN NO [facility]05-06-2024 18:07-0400 Body olmnyl408.4 cmSt[facility]-2024 18:07-0400Body mass index (BMI) [Ratio]25.4 kg/p9KikdottspSt. Mary'[facility]05-06-2024 18:07-0400Body lsuizabpvxv37.4 [degF][facility]05-06-2024 18:07-0400Body anhmsc06.96 kgSt. [facility]05-06-2024 18:07-0400Diastolic blood iuodjwko28 mm[Hg][facility] 07-08-2023 18:07-0400Heart rate80 /[facility] 07-08-2023 18:07-0400Respiratory rate20 /[facility] 07-08-2023 18:07-8833ZeI0% (BldA) [Mass fraction]99 %[facility]05-06-2024 18:07-0400Systolic blood mm[Hg][facility] Encounters Encounter DateEncounter TypeCare ProviderFacilityStart: 01-03-2025 End: 35-23-5601Rbayhkoak department patient visitJoseglendy Clifford DO Work Phone: [facility] DepartmentComment on above: Nausea and vomiting, unspecified vomiting type (Primary Dx); HypokalemiaStart: 09-19-2023 End: 53-43-3492Pwckrgihm department patient visitPHYSICIAN NO [facility] Work Phone: Start: 07-08-2023 End: 60-72-4509mpaqmrlcwiFjqayzzhoMary [facility] Work Phone: Start: 07-08-2023 End: 40-28-0559Umiekgo encounter procedureNov[facility] Brittaney Work Phone: Start: 09-13-2021 End: 33-53-1353xfdefomzjnMU LOC PALOMINOFacility:E5Vbmfm: 06-09-2021 End: 85-96-0057qldwwshhbsLE DENNIS G FURLONGFacility:R3Oznug: 02-27-2021 End: 41-53-2002uedakqdcrtBENHWJL D KATKOFacility:F8Vacpn: 01-03-2021 End: 30-92-2932rbjlkghlyqLH DENNIS G FURLONGFacility:Z4Lvdef: 12-07-2020 End: 26-77-1491exkqhhokxmPW OSMAR Torres NIRUFacility:W4Qpzvg: 10-27-2020 End: 96-10-5599pcxmmkvjmbJNHIYY RAUCHFacility:H1 Procedures DateProcedureProcedure DetailPerforming ClinicianStart: 88-55-0236Oqxt tst prsmv instrmnt chem analyzers pr Pancho Liu MD Work Phone: Start: 27-68-1570Edbjg of acetaminophenChico Liu MD Work Phone: Start: 12-93-2270Nqixm of ethanolSerjosé Liu MD Work Phone: Start: 32-25-4012Vyguf of salicylateChico iLu MD Work Phone: Start: 45-14-3379Jlqsc metabolic panel calcium total Chicojosé Liu MD Work Phone: Plan of Treatment DateCare ActivityDetailAuthorStart: 82-99-1204YFHEY-19 Vaccine ( season)COVID-19 Vaccine ( season)[facility]: 29-00-2619Vdrjfaeqf vaccinationFlu vaccine (#1)[facility]: 90-22-9113NZbJ/Tdap/Td vaccine (1 - Tdap)DTaP/Tdap/Td vaccine (1 - Tdap)[facility] EducationPhlebitis (DC)[facility] Work Phone: [facility] referralDelaware [facility] Hospital [facility] Work Phone: Payers DatePayer CategoryPayerPolicy [id number] [id number] [id number] 2..1.2666[id number] 2.840.1.31320[id number] 2.0.[id number] 2.0.1.96342[id number] 2.0.1.970647.[id number] 2.0.1.563302.3.579.2.531 Social History DateTypeDetailFacilityTobacco smoking status NHISUnknown if ever smokedOhiohealth Grady Memorial Hospital Work Phone: Start: 52-30-7565Bkh Assigned At BirthFeCleveland Clinic Akron General Lodi Hospitaltart: 29-23-0342Pqnsnzi smoking status NHISNever smoked tobacco (finding)[facility] CampusTobacco smoking status NHIS Tobacco smoking consumption unknownLittle [facility] [place]Start: 01-03-2025 History of Social functionInova Fair Oaks HospitalLive Current Media [facility] HospitalMaster [employer] [facility] OhioStart: 70-31-2896Ofqetnykwkbop Safety Domain Source: IP Abuse ScreeningInova Fair Oaks HospitalLive Current Media [facility] HospitalMaster [employer] [facility] OhioPhysical abuse DeniesInova Fair Oaks HospitalPANTA Systems [facility] OhioStart: 81-34-1890Rpg assigned at birthNot on file [facility] OshiboreeStart: 23-03-9028JugBrapfi (finding)[facility] HospitalNorth American PalladiumNEGATED: Highlighted rowSt. Mary'[facility] Discharge instructions 01-03-2025 Note Date & DyyuYciwGyetgzqm15-71-6023 Hospital Discharge instructions* Discharge Instructions* Chico Liu MD - 01/03/2025 3:56 AM EST You were seen evaluated for dizziness, nausea and vomiting. Labs showed that you had a low potassium level that was replaced here in the ER. Your symptoms may be related to your low potassium. You appeared to tolerate drink in the ER. Please follow-up with your primary care provider in order to discuss your symptoms, this ER visit, and to answer any other questions or concerns. Please return to the ER for any sudden chest pain, shortness of breath, or any other questions or concerns. documented in this encounterLittle [facility] Medical Center [place] Evaluation note Note Date & TypeNoteFacilityEvaluation noteNo assessment information available [facility] Work Phone: Evaluation note Note Date & TypeNoteFacilityEvaluation note* Diagnosis Onset Date Resolution Status Tooth infection acute [facility] Work Phone: Evaluation note Note Date & TypeNoteFacilityEvaluation note* Diagnosis Nausea and vomiting, unspecified vomiting type- Primary Hypokalemia Hypopotassemia documented in this encounter [facility] Summary Purpose Family History No Family History Records FoundNo Family History Records FoundNo Family History Records FoundNo Family History Records Found Advance Directives No Advanced Directives Records Found Advance Directive Response Recorded Date/ Time Advance Directives No July 08, 2023 5:47pm Advance Directive Response Recorded Date/ Time Advance Directives No September 18 7:59pm Chief Complaint and Reason for Visit Chief Complaint poss tooth infection Chief Complaint poss tooth infection bug bite on rt armReason for VisitTooth infection Additional Source Comments INFORMATION SOURCE (unrecogn ized section and content) DATE CREATED AUTHOR 05/03/2021 [facility] DATE CREATED AUTHOR AUTHOR'S ORGANIZ ATION 09/27/2021 [facility] DATE CREATED AUTHOR AUTHOR'S ORGANIZ ATION 12/16/2023 [facility] DATE CREATED AUTHOR AUTHOR'S ORGANIZ ATION 01/04/2025 [facility] Care Teams (unrecognized sec tion and content) Team Status: Active Member Role Status Dates Bi Ledesma DO Primary Care Provider Active Team Status: Inactive Member Role Status Dates Bi Ledesma DO Primary Care Provider Active Start: July 08, 2023 End: July 07Bam Conner ProviderActiveStart: July 08, 2023 End: July 08, 2023 Team Status: Active Member Role Status Dates PHYSICIAN NO FAMILY Primary Care Provider Active Team Status: Inactive Member Role Status Dates PHYSICIAN NO FAMILY Primary Care Provider Active Start: September 19, 2023 End: September 18Carmine Feliciano ProviderActiveStart: September 19, 2023 End: September 19, 2023 Goals (unrecognized section and content) Goals may be documented in a n alternate sectionGoals may be documented in an alternate section Scheduled Active and Recently Administ ered Medications (unrecognized section and content) Medication Order LORazepam (ATIVAN) tablet 1 mg (COMPLETED) 1 mg, Oral, ONCE, 1 dose, On 01/03/25 at 0100 * 0053 (Given - Provider: Ralph Riley RN) meclizine (ANTIVERT) tablet 25 mg (COMPLETED) 25 mg, Oral, ONCE, 1 dose, On 01/03/25 at 0100 * 0056 (Given - Provider: Ralph Riley RN) ondansetron (ZOFRAN) injection 4 mg (COMPLETED) 4 mg, IntraVENous, ONCE, 1 dose, On 01/03/25 at 0100 * 0053 (Given - Provider: Ralph Riley RN) potassium chloride (KLOR-CON M) extended release tablet 40 mEq (COMPLETED) 40 mEq, Oral, ONCE, 1 dose, On 01/03/25 at 0115, Do not crush or break. Do not crush, chew, or suck on tablet. Tablet may also be broken in half and each half swallowed separately. * 0126 (Given - Provider: Ralph Riley RN) potassium chloride 10 mEq/100 mL IVPB (Peripheral Line) (COMPLETED) 10 mEq, IntraVENous, EVERY HOUR, 2 doses, First dose on 01/03/25 at 0115, Last dose on 01/03/25 at 0200, at 100 mL/hr, Potassium chloride doses are limited to a maximum of six consecutive dosesbefore reassessment of laboratory values is needed. * 0132 (New Bag - Provider: Ralph Riley RN) * 0227 (New Bag - Provider: Ralph Riley RN) * 0251 (Stopped - Provider: Ralph Riley RN) FOR RECORDS PERTAINING TO PATIENTS WHO ARE OR HAVE BEEN ENROLLED IN A CHEMICAL DEPENDENCY/SUBSTANCEABUSE PROGRAM, SOME INFORMATION MAY BE OMITTED. This clinical summary was aggregated from multiple sources. Caution should be exercised in using it in the provision of clinical care. This summary normalizes information from multiple sources, and as a consequence, information in this document may materially change the coding, format and clinical context of patient data. In addition, data may be omitted in some cases. CLINICAL DECISIONS SHOULD BE BASED ON THE PRIMARY CLINICAL RECORDS. [facility]. provides no warranty or guarantee of the accuracy or completeness of information in this document.
--- OUTSIDE RECORDS SUMMARY | 2025-01-07 14:05 | XMS_ITS | Clinical Summary ---
Author Organization [facility] Healthcare Address [address] [place] [address] Care Team Providers Care Environmental Engineering Manager Name Role Phone Bi Ledesma MD Primary Care Provider [phone] Allergies Active AllergyReactionsCriticalityNoted DateCommentsCat CfmumsEpnrmsa79/27/2023 Pollen UalnujqVmewjop34/27/2023 Medications MedicationSigDispense QuantityRefillsLast FilledStart DateEnd DateStatus busPIRone [...] InformationValueDate RecordedSex Assigned at BirthNot on fileLegal HvhDfemup77/15/2023 11:08 PM EDT Gender IdentityNot on fileSexual OrientationNot on file Last Filed Vital Signs Vital SignReadingTime TakenCommentsBlood Vbutujwo105/7411/04/2022 2:04 PM EDT Pulse--Temperature--Respiratory Rate--Oxygen Saturation--Inhaled Oxygen Concentration--Qkvecw70.5 kg (151 lb)01/03/2023 2:04 PM HQAGncwbd286.4 cm (5') 03/29/2020 12:00 PM ESTBody Mass Index29.49003/29/2020 12:00 PM EST Plan of Treatment Not on file Insurance Care Teams Team MemberRelationshipSpecialtyStart DateEnd Date Bi Ledesma MD PCP - GeneralGreat [facility] Systemly Nyihnoyc76/2/23
--- OUTSIDE RECORDS SUMMARY | 2025-01-07 14:07 | XMS_ITS | CCD ---
Author Organization [facility] Care Team Providers Care Immigration Investigator Name Role Phone JOSE, DR BI Thao [...] Unava ilable DO Kiko Sanchez Emergency Provider Kiko Sanchez Admitting Unavailable Kiko Sanchez Attending Unavailable NO FAMILY, PHYSICIAN Primary Care Unavailable Unavailable Primary Care Provider UnavailPATY Mandujano Attending Unavailable Medications Current Medications MedicationDrug Class(es)DatesSig (Normalized)Sig (Original)cephalexin 500 mg oral capsule (1 source)Cephalosporin AntibacterialStart: 77-19-2021xejo 500 mg by mouth every eight hoursCephalexin Active 500 MG PO Every 8 hours 30 10 September 19, 2023 12:00amFLUoxetine 20 mg oral capsule (2 sources)Serotonin Reuptake InhibitorStart: 24-63-8120mwwl 1 capsule by mouth once dailyFluoxetine (Prozac) 20 mg capsule Active 20 MG PO Daily July 08, 2023 12:00am Completed/Discontinued Medications MedicationDrug Class(es)DatesSig (Normalized)Sig (Original)amoxicillin 875 mg oral tablet (1 source)Penicillin-class AntibacterialStart: 07-08-2023 End: 91-27-8242gpzc 875 mg by mouth twice dailyAmoxicillin Discontinued 875 MG PO Twice daily 20 July 08, 2023 12:00am September 19, 2023 6:38pmLORazepam 0.5 mg oral tablet (1 source)BenzodiazepineStart: 01-03-2025 End: 09-89-6369ceeg 1 dose by mouth once1 mg, Oral, ONCE, 1 dose, On 01/03/25 at 0100Start: 01-03-2025 End: 09-87-5106snnf 1 dose by mouth once1 mg, Oral, ONCE, 1 dose, On 01/03/25 at 0100meclizine hydrochloride 12.5 mg oral tablet (1 source)AntiemeticStart: 01-03-2025 End: 91-15-5125wxsh 1 dose by mouth once25 mg, Oral, ONCE, 1 dose, On 01/03/25 at 0100Start: 01-03-2025 End: 00-69-1227txhg 1 dose by mouth once25 mg, Oral, ONCE, 1 dose, [place] 01/03/25 [place] [address] ml ondansetron 2 mg/ml injection (1 source)Serotonin-3 Receptor AntagonistStart: 01-03-2025 End: mg, IntraVENous, ONCE, 1 dose, On 01/03/25 at 0100Start: 01-03-2025 End: mg, IntraVENous, ONCE, 1 dose, On 01/03/25 at 0100 microencapsulated potassium chloride 20 meq extended release oral tablet (2 sources)Start: 01-03-2025 End: 76-99-144529 mEq, IntraVENous, EVERY HOUR, 2 doses, First [...] of tooth; Translations: [Periapical abscess without sinus] 57-66-2202FegmyazjOkdke and electrolyte disorders (2 sources)Hypokalemia; Translations: [Hypokalemia]Onset: EpisodicImmunizations and screening for infectious disease (6 sources)Encounter for screening for infections with a predominantly sexual mode of transmission; Translations: [Encounter for screening for human papillomavirus (HPV)]Onset: 87-10-2728GtrhwihyYnucma and vomiting (2 sources)Nausea and vomiting; Translations: [Nausea with vomiting, unspecified]Onset: 792544-22-9065AutktrzsQqpve skin disorders (1 source)Rash and other nonspecific skin eruption; Translations: [Rash and other nonspecific skin eruption]Onset: 71-72-5612GwwzgvkjTiclopmjf; thrombophlebitis and thromboembolism (1 source)Phlebitis; Translations: [Phlebitis and thrombophlebitis of unspecified site]65-80-9238KrpwljwsBbmahvnjmafd (3 sources)CONTACT W/AND (SUSP) EXPOS COVID-19; Translations: [CONTACT W/AND (SUSP) EXPOS COVID-19]Onset: 03-02-2021 Past or Other Problems Problem ClassificationProblemDateDocumented DateEpisodic/ChronicOther female genital disorders (4 sources)Other specified noninflammatory disorders of vagina; Translations: [OTH SPEC NONINFLAMMATORY D/O VAGINA]Onset: 82-57-5191OiszbywvHbvdt screening for suspected conditions (not mental disorders or infectious disease) (5 sources)Encounter for screening for malignant neoplasm of cervix; Translations: [Encounter for observation for other suspected diseases and conditions ruled out]Onset: 00-10-3203ZnmoniyfQokbjpjngpqe (1 source)CONTACT W/AND (SUSP) EXPOS COVID-19; Translations: [CONTACT W/AND (SUSP) EXPOS COVID-19]Onset: 02-27-2021 Results Test NameValueInterpretationReference RangeFacilityAcetaminophenon 01-03-2025 Acetaminophen [Mass/Vol]ug/oXMiz06-06Jlsba Healdsburg District HospitalComment on above:Performed By: #### HCG, ALCB, BMP, ACET, SALI, CDP #### [facility] [address] [place] [address] Data Management Associate: Mateo Ren MDAcetaminophen Levelon 82-85-5588Jpjfseoamdqsf [Mass/Vol]ug/mLLow10 - 30 ug/mLBon [facility] L. [facility]ee Memorial HospitalWorkle [facility] Anne HospitalInterpretation and review of laboratory resultsAbnormalBon [facility] Cro YachtingBMPon 39-43-9185Otewc gap [Moles/Vol]19 mmol/LHigh9 - 16 mmol/LBon [facility] HealthCalcium [Mass/Vol] 8.7 mg/dL8.6 - 10.4 mg/dLBon [facility] HealthChloride [Moles/Vol]104 mmol/L 98 - 107 mmol/LBon [facility] HealthCO2 [Moles/Vol]17 mmol/LLow20 - 31 mmol/L [facility] HealthCreatinine [Mass/Vol]0.9 mg/dL0.6 - 0.9 mg/dLBon [facility] Cro YachtingEst, Glom Filt Rate82- PINFBon [facility] Anne HospitalComment on above: These results are not intended [...] that affects renal tubular secretion. Glucose [Mass/Vol]103 mg/hRCcix61 - 99 mg/dLBon [facility] Medical CenterReal Estate Cozmetics HealthPotassium [Moles/Vol]3.0 mmol/LLow3.7 - 5.3 mmol/LBon [facility] HealthSodium [Moles/Vol]140 mmol/L136 - 145 mmol/LBon [facility] HospitalUrea nitrogen [Mass/Vol]12 mg/dL6 - 20 mg/dLBon [facility] HospitalBasic Metabolic Profon 54-97-7443Lfyjw gap [Moles/Vol]19 mmol/LHigh9-16[facility] Comment on above:Performed By: #### HCG, ALCB, BMP, ACET, SALI, CDP #### [facility] [address] [place] [address] Data Management Associate: CLAIRE Tangalcium [Mass/Vol]8.7 mg/dLNormal8.6-10.4[facility] HospitalComment on above:Performed By: #### HCG, ALCB, BMP, ACET, SALI, CDP #### [facility] [address] [place] [address] Data Management Associate: CLAIRE Tanghloride [Moles/Vol]104 mmol/BFggxrb17-161QwzjiProtestant HospitalComment on above:Performed By: #### HCG, ALCB, BMP, ACET, SALI, CDP #### [facility] [address] [place] [address] Data Management Associate: Mateo Ren MDCO2 [Moles/Vol]17 mmol/ZLpy76-08VrylpProtestant HospitalComment on above:Performed By: #### HCG, ALCB, BMP, ACET, SALI, CDP #### [facility] [address] [place] [address] Data Management Associate: CLAIRE Tangreatinine [Mass/Vol]0.9 mg/dLNormal0.6-0.9[facility] HospitalComment on above:Performed By: #### HCG, ALCB, BMP, ACET, SALI, CDP #### [facility] [address] [place] [address] Data Management Associate: Mateo Ren MDGFR/1.73 sq M.predicted among non-blacks MDRD (S/P/Bld) [Vol rate/Area]82 mL/min/{1.73_m2}Normal>60[facility] HospitalComment on above:Result Comment: These results are [...] HCG, ALCB, BMP, ACET, SALI, CDP #### [facility] [address] [place] [address] Data Management Associate: Mateo Ren MDGlucose [Mass/Vol]103 mg/zATced39-53QgqvvKindred HospitalComment on above:Performed By: #### HCG, ALCB, BMP, ACET, SALI, CDP #### [facility] [address] [place] [address] Data Management Associate: CATHLEEN Tangotassium [Moles/Vol]3.0 mmol/LLow3.7-5.3MKindred HospitalComment on above:Performed By: #### HCG, ALCB, BMP, ACET, SALI, CDP #### [facility] [address] [place] [address] Data Management Associate: REYAN Tangodium [Moles/Vol]140 mmol/YChgtss688-497JcrzzProtestant HospitalComment on above:Performed By: #### HCG, ALCB, BMP, ACET, SALI, CDP #### [facility] [address] [place] [address] Data Management Associate: Mateo Ren MDUrea nitrogen [Mass/Vol]12 mg/dLNormal6-20[facility] HospitalComment on above:Performed By: #### HCG, ALCB, BMP, ACET, SALI, CDP #### [facility] [address] [place] [address] Data Management Associate: Mateo Ren [facility] with Auto Differentialon 20-68-6773Vewwnmsvw (Bld) [#/Vol]0.12 10*3/uLBon Secours [facility] HealthBasophils/100 WBC (Bld)2 %0 - 2 %[facility] HealthEosinophils (Bld) [#/Vol]0.22 10*3/uLBon Secours Mercy HealthEosinophils/100 WBC (Bld)3 %1 - 4 %[facility] Erythrocyte distribution width (RBC) [Ratio]12.7 %11.8 - 14.4 %[facility] HealthHematocrit (Bld) [Volume fraction]35.0 %Low36.3 - 47.1 %Bon SecLourdes Counseling Centery HealthHemoglobin (Bld) [Mass/Vol]12.1 g/dL11.9 - 15.1 g/dLBon Secours MercCarilion ClinicImmature granulocytes (Bld) [#/Vol][facility] HealthImmature granulocytes/100 WBC (Bld)0 %0[facility] HealthInterpretation and review of laboratory resultsAbnormalBon Secours Mercy HealthLymphocytes/100 WBC (Bld)32 %24 - 43 %[facility] HealthLymphocytes/100 WBC (Bld)2.49 %[facility] HospitalH (RBC) [Entitic mass]29.4 pg25.2 - 33.5 pgBon Secours [facility] HospitalHC (RBC) [Mass/Vol]34.6 g/dL28.4 - 34.8 g/dLBon Secours [facility] City HospitalV (RBC) [Entitic vol]85.2 fL82.6 - 102.9 fLBon Secours Mercy HealthMonocytes/100 WBC (Bld)9 %3 - 12 %[facility] HealthMonocytes/100 WBC (Bld)0.68 %[facility] HealthNeutrophils/100 WBC (Bld)54 %36 - 65 %[facility] HealthNucleated RBC/100 WBC (Bld) [Ratio]0.0 %0.0 per 100 WBCBon Marymount HospitalPlatelet mean volume (Bld) [Entitic vol]10.8 fL8.1 - 13.5 fLBon [facility]mount HospitalPlatelets (Bld) [#/Vol]315 10*3/uLBon [facility]mount HospitalRBC (Bld) [#/Vol]4.11 10*6/uL3.95 - 5.11 m/uLBon [facility] HospitalSegmented neutrophils/100 WBC (Bld)4.29 %Bon [facility] HospitalWBC other (Bld) [#/Vol] 7.8Bon [facility] HealthCBC with Diffon 01-03-2025 Abs. Basophil0.12 k/uLNormal0.00-0.20[facility] HospitalComment on above:Performed By: #### HCG, ALCB, BMP, ACET, SALI, CDP #### [facility] [employer] [address] [place] [address] Data Management Associate: Nata Tang.Imm.Granulocyte<0.79Eesirr9.00-0.30[facility] HospitalComment on above:Performed By: #### HCG, ALCB, BMP, ACET, SALI, CDP #### [facility] [address] [place] [address] Data Management Associate: Nata Tang.Neutrophil (Seg)4.29 k/uLNormal1.50-8.10 [facility] HospitalComment on above:Performed By: #### HCG, ALCB, BMP, ACET, SALI, CDP #### [facility] [address] [place] [address] Data Management Associate: Mateo Ren MDBasophils/100 WBC (Bld)2 %Normal0-2MercSt. John's Hospital CamarilloComment on above:Performed By: #### HCG, ALCB, BMP, ACET, SALI, CDP #### [facility] [address] [place] [address] Data Management Associate: Mateo Ren MDEosinophils (Bld) [#/Vol]0.22 10*3/uLNormal 0.00-0.44[facility] HospitalComment on above:Performed By: #### HCG, ALCB, BMP, ACET, SALI, CDP #### [place] [address] Data Management Associate: Mateo Ren MDEosinophils/100 WBC (Bld)3 %Normal1-4[facility] HospitalComment on above:Performed By: #### HCG, ALCB, BMP, ACET, SALI, CDP #### [facility] [address] [place] [address] Data Management Associate: Mateo Ren MDErythrocyte distribution width (RBC) [Ratio]12.7 %Nyszcr77.8-14.4[facility] HospitalComment on above:Performed By: #### HCG, ALCB, BMP, ACET, SALI, CDP #### [place] [address] Data Management Associate: Mateo Ren MDHematocrit (Bld) [Volume fraction]35.0 %Low 36.3-47.1MKindred HospitalComment on above:Performed By: #### HCG, ALCB, BMP, ACET, SALI, CDP #### [facility] [address] [place] [address] Data Management Associate: Mateo Ren MDHemoglobin (Bld) [Mass/Vol]12.1 g/dLNormal 11.9-15.1MKindred HospitalComment on above:Performed By: #### HCG, ALCB, BMP, ACET, SALI, CDP #### [facility] [address] [place] [address] Data Management Associate: Mateo Ren MDImmature granulocytes/100 WBC (Bld)0 %Normal0 [facility] HospitalComment on above:Performed By: #### HCG, ALCB, BMP, ACET, SALI, CDP #### [facility] [employer] [address] [place] [address] Data Management Associate: Chilango Tangmphocytes (Bld) [#/Vol]2.49 10*3/uLNormal 1.10-3.70[facility] HospitalComment on above:Performed By: #### HCG, ALCB, BMP, ACET, SALI, CDP #### [facility] [address] [place] [address] Data Management Associate: Dheeraj Tanghocytes/100 WBC (Bld)32 %Vsdpkt79-61OwqfnProtestant HospitalComment on above:Performed By: #### HCG, ALCB, BMP, ACET, SALI, CDP #### [facility] [address] [place] [address] Data Management Associate: ESTEBAN Tang (RBC) [Entitic mass]29.4 jbPozesq73.2-33.5 [facility] HospitalComment on above:Performed By: #### HCG, ALCB, BMP, ACET, SALI, CDP #### [facility] [employer] [address] [place] [address] Data Management Associate: ESTEBAN TangC (RBC) [Mass/Vol]34.6 g/oHHasvfz42.4-34.8 [facility] HospitalComment on above:Performed By: #### HCG, ALCB, BMP, ACET, SALI, CDP #### [facility] [employer] [address] [place] [address] Data Management Associate: AGUEDA Tang (RBC) [Entitic vol]85.2 pWJehiow96.6-102.9 [facility] HospitalComment on above:Performed By: #### HCG, ALCB, BMP, ACET, SALI, CDP #### [facility] [address] [place] [address] Data Management Associate: SATHYA Tangonocytes (Bld) [#/Vol]0.68 10*3/uLNormal 0.10-1.20[facility] HospitalComment on above:Performed By: #### HCG, ALCB, BMP, ACET, SALI, CDP #### [facility] [address] [place] [address] Data Management Associate: SATHYA Tangonocytes/100 WBC (Bld)9 %Normal3-12[facility] HospitalComment on above:Performed By: #### HCG, ALCB, BMP, ACET, SALI, CDP #### [address] [address] Data Management Associate: Lu Tangutrophil (Seg)54 %Jcdwhj81-13YquecProtestant HospitalComment on above:Performed By: #### HCG, ALCB, BMP, ACET, SALI, CDP #### [address] [address] Data Management Associate: Mateo Ren MDNRBC Automated0.0 per 100 WBCNormal0.0[facility] HospitalComment on above:Performed By: #### HCG, ALCB, BMP, ACET, SALI, CDP #### [address] [address] Data Management Associate: CATHLEEN Tanglatelet mean volume (Bld) [Entitic vol]10.8 fL Normal8.1-13.5[facility] HospitalComment on above:Performed By: #### HCG, ALCB, BMP, ACET, SALI, CDP #### [facility] [address] [place] [address] Data Management Associate: CATHLEEN Tanglatelets (Bld) [#/Vol]315 10*3/wPKzrwog854-654 [facility] HospitalComment on above:Performed By: #### HCG, ALCB, BMP, ACET, SALI, CDP #### [address] [address] Data Management Associate: Mateo Ren [facility] [#/Vol]4.11 10*6/uLNormal3.95-5.11 [facility] HospitalComment on above:Performed By: #### HCG, ALCB, BMP, ACET, SALI, CDP #### [address] [address] Data Management Associate: Mateo Ren MDST. JOHN'S [facility] ([facility]) [#/Vol]7.8 10*3/uLNormal3.5-11.3MKindred HospitalComment on above:Performed By: #### HCG, ALCB, BMP, ACET, SALI, CDP #### [address] [address] Data Management Associate: Mateo Ren MDDrug Scr, Abuse, Uron 01-03-2025 Cannabinoid(s),UrPositiveAbrmalNEGProtestant HospitalComment on above:Result Comment: Cutoff: 50 ng/mlPerformed By: #### AME #### [address] [address] Data Management Associate: Mateo Ren MDInterpretive InfoAssay provides rapid clinical screening only. Presumptive positive results [facility] Hospital - TrumbullComment on above:Result Comment: legal purposes should be confirmed by another method. To request confirmation, please call the lab within 7 days of sample submission.Performed By: #### AME #### [facility] [address] [place] [address] Data Management Associate: Mateo Ren MDAmphetamine(s),UrNegativeNormalNEGProtestant HospitalComment on above:Result Comment: Cutoff: 1000 ng/mL Performed By: #### AME #### [address] [address] Data Management Associate: Mateo Ren MDBarbiturate(s),UrNegativeNormalNEGProtestant HospitalComment on above:Result Comment: Cutoff: 200 ng/ml Performed By: #### AME #### [address] [address] Data Management Associate: Mateo Ren MDBenzodiazepine(s)NegativeNormalNEGProtestant HospitalComment on above:Result Comment: Cutoff: 200 ng/ml Performed By: #### AME #### [address] [address] Data Management Associate: CLAIRE Tangocaine MetaboliteNegativeOhioHealth Grant Medical CenterComment on above:Result Comment: Cutoff: 300 ng/ml Performed By: #### AME #### [address] [address] Data Management Associate: Monica Tangtanyl, UrineNegativeNormalNEGProtestant HospitalComment on above:Result Comment: Cutoff: 5 ng/mlPerformed By: #### AME #### [address] [address] Data Management Associate: SATHYA Tangethadone Ql (U)NegativeNormalNEGProtestant HospitalComment on above:Result Comment: Cutoff: 300 ng/ml Performed By: #### AME #### [address] [address] Data Management Associate: Mateo Ren MDOpiate(s), UrNegativeNoalNEGProtestant HospitalComment on above:Result Comment: Cutoff: 300 ng/mlPerformed By: #### AME #### [address] [address] Data Management Associate: Mateo Ren MDOxycodone, UrineNegativeNormalNEGProtestant HospitalComment on above:Result Comment: Cutoff: 100 ng/ml Performed By: #### AME #### [facility] [employer] [address] [place] [address] [phone] Data Management Associate: CATHLEEN Tnaghencyclidine, UrNegativeNormalNEGProtestant HospitalComment on above:Result Comment: Cutoff: 25 ng/mlPerformed By: #### AME #### [facility] [address] [phone] Data Management Associate: Mateo Ren MDEthanolon 70-63-9473Lcjkkxf percent0.049 %High NINF - 0.010 %Bon [facility] HospitalEthanolamine [Mass/Vol]49 mg/dLHighNINF - 10 mg/dLBon Marymount HospitalEthanol Alcoholon 67-39-1715Blarwak [Mass/Vol]49 mg/dLHigh<10[facility] HospitalComment on above:Performed By: #### HCG, ALCB, BMP, ACET, SALI, CDP #### [facility] [address] [place] [address] [phone] Data Management Associate: Mateo Ren MDEthanol percent0.049 %High<0.010Pro[facility] HospitalComment on above:Performed By: #### HCG, ALCB, BMP, ACET, SALI, CDP #### [facility] [address] [phone] Data Management Associate: Mateo Ren MDHCG Qualitative, Serumon 56-21-6655XGF ( test) QlNegativeNEGATIVEMary Washington HealthcareComment on above: Specimens with hCG levels near the threshold of the test (25 mIU/mL) may give a negative or indeterminate result. In such cases, another test should be performed with a new specimen in 48-72 hours. If early is suspected clinically in this setting, correlation with quantitative serum b-hCG level is suggested. [facility] has confirmed the use of plasma for this test. This has not been cleared or approved by the U.S. Food and Drug Administration. The FDA has determined that such clearance is not necessary. Bon [facility]mount HospitalHCG Screen, Bloodon 25-38-3771ITV Screen, BloodNegative NormalNEGMerVA Greater Los Angeles Healthcare CenterComment on above:Result Comment: Specimens with hCG levels near the threshold of the test (25 mIU/mL) may give a negative or indeterminate result. In such cases, another test should be performed with a new specimen in 48-72 hours. If early is suspected clinically in this setting, correlation with quantitative serum b-hCG level is suggested. [facility] has confirmed the use of plasma for this test. This has not been cleared or approved by the U.S. Food and Drug Administration. The FDA has determined that such clearance is not necessary.Performed By: #### HCG, ALCB, BMP, ACET, SALI, CDP #### [facility] [address] [place] [address] Data Management Associate: Mateo Ren MDNo Panel Informationon 61-03-2394Qaf [facility] HealthInterpretation and review of laboratory resultsAbnormalBon SecMagruder Memorial HospitalBon Marymount HospitalSalicylateon 59-13-0961Annjbesskkq [Mass/Vol]mg/dL0.0 - 10.0 mg/dLBon Secours Mercy HealthSalicylate<0.5Normal 0.0-10.0Pro[facility] HospitalComment on above:Performed By: #### HCG, ALCB, BMP, ACET, SALI, CDP #### [facility] [address] [place] [address] Data Management Associate: Mateo Ren MDUrine Drug Screenon 78-99-2941Kldavqyxntaa Ql (U)NegativeNEGATIVEBon SecNorth[facility] HealthComment on above:Cutoff: 1000 ng/mL Barbiturates Screen Ql (U)NegativeNEGATIVEBon Secours Mercy HealthComment on above:Cutoff: 200 ng/mlBenzodiazepines Ql (U)NegativeNEGATIVEBon Secours [facility] HealthComment on above:Cutoff: 200 ng/mlCannabinoids Screen Ql (U)Positive AbnormalNEGATIVEBon Secours [facility]cy HealthComment on above:Cutoff: 50 ng/mlCocaine Ql (U)NegativeNEGATIVEBon [facility] HospitalComment on above:Cutoff: 300 ng/mlfentaNYL Ql (U)NegativeNEGATIVEBon [facility]mount HospitalComment on above: Cutoff: 5 ng/mlInterpretation and review of laboratory resultsAbnormalBon Marymount HospitalMethadone Ql (U)NegativeNEGATIVERiverside Doctors' Hospital [facility] Health Comment on above:Cutoff: 300 ng/mlOpiates Screen Ql (U)NegativeNEGATIVEBon Marymount HospitalComment on above:Cutoff: 300 ng/mloxyCODONE Ql (U)Negative NEGATIVEBon [facility]mount HospitalComment on above:Cutoff: 100 ng/mlPhencyclidine Ql (U)NegativeNEGATIVECentra Virginia Baptist Hospitalment on above:Cutoff: 25 ng/ml Test InformationAssay provides rapid clinical screening only. Presumptive positive results for legal purposes should be confirmed by another method. To request confirmation, please call the lab within 7 days of sample submission.Bon [facility] HealthCHLAMYDIA/GONOCOCCUS JUVE (SWAB/URINE/PAPon 27-54-1849Wzfwxlskw trachomatis, NAANegativeNormalNegativeOhiohealth Grove City Methodist HospitalComment on above:Performed By: #### CT/NGNA #### [facility] [address] [place] [address] Dr. Ivonne MoralesNeisseria gonorrhoeae, NAANegativeNormalNegativeOhiohealth Grove City Methodist HospitalComment on above:Performed By: #### CT/NGNA #### [facility] [address] [place] [address] Dr. Ivonne MoralesVAGINITIS/VAGINOSIS DNA PROBEon 47-10-4302Vovkbyq speciesNegative NormalNegativeOhiohealth Grove City Methodist HospitalComment on above:Performed By: #### VAGINT #### [facility] [address] [place] [address] Dr. Ivonne Gallardoerellsherwin vaginalisNegativeNormalNegativeOhiohealth Grove City Methodist Hospital Comment on above:Performed By: #### VAGINT #### [facility] [address] [place] [address] Dr. Ivonne Gruberhomonas vaginalisNegativeNormalNegativeOhiohealth Grove City Methodist Hospital Comment on above:Performed By: #### VAGINT #### [facility] [address] [address] [address] Ivonne Parsons ACOG PANEL 2: 30 to 63on 06-14-2021..NormalOhiohealth Grove City Methodist HospitalComment on above:Result Comment: Performed at: WBPerformed By: #### CVDTBH, CVDAGS #### [facility] [address] [place] [address] Osmany KarenAge Gdln ACOG Xyikdan64-93ZvwmxePtcKettering Health SpringfieldComment on above:Performed By: #### CVDTBH, CVDAGS #### [facility] [address] [place] [address] Osmany KarenDIAGNOSIS:CommentToledo HospitalComment on above:Result Comment: NEGATIVE FOR INTRAEPITHELIAL LESION OR MALIGNANCY. Performed at: WBPerformed By: #### CVDTBH, CVDAGS #### [facility] [address] [place] [address] Osmany KarenHPV AptimaNegativeNormalNegOhioHealth Southeastern Medical CenterComment on above:Result Comment: This nucleic acid amplification test detects fourteen high-risk HPV types (16,18,31,33,35,39,45,51,52,56,58,59,66,68) without differentiation. Performed at: =GPerformed By: #### CVDTBH, CVDAGS #### [facility] [address] [place] [address] Osmany KarenMethodology:CommentNoKettering Health SpringfieldComment on above: Result Comment: This liquid based ThinPrep(R) pap test was screened with the use of an image guided system. Performed at: WBPerformed By: #### CVDTBH, CVDAGS #### [facility] [address] [place] [address] Osmany KarenNote:CommentToledo HospitalComtrinity health ann arbor hospital on above:Result Comment: The Pap smear is a screening test designed to aid in the detection of premalignant and malignant conditions of the uterine cervix. It is not a diagnostic procedure and should not be used as the sole means of detecting cervical cancer. Both false-positive and false-negative reports do occur. . Performed at: WBPerformed By: #### CVDTBH, CVDAGS #### [facility] [address] [place] [address] Osmany KarenPerformed by:CommentToledo HospitalComtrinity health ann arbor hospital on above: Result Comment: Stephanie Ballard, Biology Research Assistant (ASCP) Performed at: WBPerformed By: #### CVDTBH, CVDAGS #### [facility] [address] [place] [address] Osmany KarenSpecimen adequacy:[facility] on above:Result Comment: Satisfactory for evaluation. No endocervical component is identified. Performed at: WBPerformed By: #### CVDTBH, CVDAGS #### [facility] [address] [place] [address] Osmany KarenCHLAMYDIA/GONOCOCCUS JUVE (SWAB/URINE/PAPon 89-14-7668Tgqlozbdl trachomatis, NAANegativeNormalNegativeOhiohealth Grove City Methodist HospitalComment on above: Performed By: #### CT/NGNA #### [facility] [address] [place] [address] Dr. Ivonne MoralesNeisseria gonorrhoeae, NAANegativeNormalNegativeThe [facility] HospitalComment on above:Performed By: #### CT/NGNA #### [facility] [address] [place] [address] Dr. Ivonne MoralesVAGINITIS/VAGINOSIS DNA PROBEon 75-77-4055Aoqirel speciesNegative NormalNegativeThe [facility] HospitalComment on above:Performed By: #### VAGINT #### [facility] [address] [place] [address] Dr. Ivonne Cruzdnerella vaginalisPositiveAbnormalNegativeOhiohealth Grove City Methodist HospitalComment on above:Performed By: #### VAGINT #### [facility] [address] [place] [address] Dr. Ivonne MoralesTrichomonas vaginalisNegativeNormalNegativeOhiohealth Grove City Methodist Hospital Comment on above:Performed By: #### VAGINT #### [facility] [address] [address] [address] Coronado ChangEXTRA URINE SPECIMENon 61-43-6494BEFQWJOVhufovEnucm Diagnostics Comment on above:Result Comment: An extra [...] INCORRECT, PLEASE CONTACT CLIENT SERVICES. PHONE NUMBER: [phone] By: #### XUPB #### [facility] [address] Arcade Game Technician: Ana Ocampo M.D. #### [id number] #### [facility]/[address] [place], [place] Arcade Game Technician: Kiko Goyal M.D.,PhDEXTRA URINE SPECIMENNormalQuest DiagnosticsComment on above:Performed By: #### XUPB #### [facility] [address] Arcade Game Technician: Ana Ocampo M.D. #### [id number] #### [facility]/[place] [address] [place], [place] Arcade Game Technician: Kiko Goyal M.D.,PhDSTI INCREASED RISK PANELon 05-02-2021 ASSAY DETAILSNormalQuest DiagnosticsComment on above:Result Comment: TEST NOT PERFORMED No specimen received.Performed By: #### XUPB #### [facility] [address] Arcade Game Technician: Ana Ocampo M.D. #### 40085 #### [facility]/[place] [address] [place], [place] Arcade Game Technician: Kiko Goyal M.D.,PhDCHLAMYDIA TRACHOMATIS RNA, TMA, UROGENITALNormalQuest DiagnosticsComment on above:Result Comment: URINE MUST BE SUBMITTED IN AN APTIMA TEST NOT PERFORMED No suitable specimen received. Please review the test requirements at [email or web address] By: #### XUPB #### [facility] [address] [place] [phone] Arcade Game Technician: Ana Ocampo M.D. #### [id number] #### [facility]/[address] [place], [place] Arcade Game Technician: Kiko Goyal M.D.,PhDMYCOPLASMA GENITALIUM, rRNA, TMANormal [facility] DiagnosticsComment on above:Result Comment: URINE NOT ACCEPTABLE TEST NOT PERFORMED No specimen received.Performed By: #### XUPB #### [facility] [address] [address] [facility] [place] [phone] Arcade Game Technician: Ana Ocampo M.D. #### 86075 #### [facility]/[address] [place] Arcade Game Technician: Kiko Goyal M.D.,PhDSURESWAB(R) TRICHOMONAS VAGINALIS RNA, QL, TMANormalQuest DiagnosticsComment on above:Result Comment: TEST NOT PERFORMED No specimen received.Performed By: #### XUPB #### [facility] [place] [phone] Arcade Game Technician: Ana Ocampo M.D. #### [id number] #### [facility]/[place] [id number] [facility] [place] Arcade Game Technician: Kiko Goyal M.D.,PhDCOMPREHENSIVE METABOLIC PANELon 00-36-1563Hmsqrlz [Mass/Vol]3.9 g/dLNormal3.6-5.1Quest DiagnosticsComment on above:Performed By: #### 03553, 7600 #### [facility] of [address], [address] [place] [address] Arcade Game Technician: Jorge Byers MDAlbumin/Globulin [Mass ratio]1.4 {ratio}Normal 1.0-2.5Quest DiagnosticsComment on above:Performed By: #### 78345, 7600 #### [facility] of [address], [address] [place] [address] Arcade Game Technician: Jorge Byers MDALP [Catalytic activity/Vol]60 U/ILdvcel80-180 [facility] DiagnosticsComment on above:Performed By: #### 20062, 7600 #### [facility] of [address], [address] [place] [address] Arcade Game Technician: Jorge Byers MDALT [Catalytic activity/Vol]10 U/LNormal6-29 [facility] DiagnosticsComment on above:Performed By: #### 08119, 7600 #### [facility] of [place] [address] Arcade Game Technician: Jorge Byers MDAST [Catalytic activity/Vol]13 U/DAitmgy93-74 [facility] DiagnosticsComment on above:Performed By: #### 89085, 7600 #### [facility] of [place] [address] Arcade Game Technician: Jorge Byers MDBilirubin [Mass/Vol]0.4 mg/dLNormal0.2-1.2 [facility] DiagnosticsComment on above:Performed By: #### 62026, 7600 #### [facility] of [address], [address] [place] [address] Arcade Game Technician: Jorge Byers MDBUN/CREATININE RATIONOT APPLICABLENormal6-22 [facility] DiagnosticsComment on above:Performed By: #### 67928, 7600 #### [facility] of [place] [address] Arcade Game Technician: Jorge Byers MDCalcium [Mass/Vol]8.8 mg/dLNormal8.6-10.2Quest DiagnosticsComment on above:Performed By: #### 97595, 7600 #### [facility] of [address], [address] [place] [address] Arcade Game Technician: Jorge Byers MDChloride [Moles/Vol]107 mmol/ZFtdptr60-589 [facility] DiagnosticsComment on above:Performed By: #### 16341, 7600 #### [facility] of [address], [address] [place] [address] Arcade Game Technician: Jorge Byers MDCO2 [Moles/Vol]23 mmol/OLvchgl35-09Ruemw DiagnosticsComment on above:Performed By: #### 53225, 7600 #### [facility] of [place] [address] Arcade Game Technician: Jorge RANGELreatinine [Mass/Vol]0.70 mg/dLNormal0.50-1.10 [facility] DiagnosticsComment on above:Performed By: #### 67034, 7600 #### [facility] of [address], [address] [place] [address] Arcade Game Technician: Jorge BolesFR NON-AFR. AIOVBZHV334 mL/min/1.99e8Iaeygn> OR = 60Quest DiagnosticsComment on above:Performed By: #### 89314, 7600 #### [facility] of [place] [address] Arcade Game Technician: Jorge Byers MDGFR/1.73 sq M.predicted among blacks MDRD (S/P/Bld) [Vol rate/Area]127 mL/min/{1.73_m2}Normal> OR = 60[facility] Comment on above:Performed By: #### 67976, 7600 #### [facility] of [place] [address] Arcade Game Technician: Jorge Byers MDGlobulin (S) [Mass/Vol]2.8 g/dLNormal1.9-3.7 [facility] DiagnosticsComment on above:Performed By: #### 64410, 7600 #### [facility] of [place] [address] Arcade Game Technician: Jorge Byers MDGlucose [Mass/Vol]87 mg/yKIlambl98-99Dfbxu DiagnosticsComment on above:Result Comment: Fasting reference intervalPerformed By: #### 67418, 7600 #### [facility] of [address], [address] [place] [address] Arcade Game Technician: Jorge Byers MDPotassium [Moles/Vol]4.2 mmol/LNormal3.5-5.3 [facility] DiagnosticsComment on above:Performed By: #### 38014, 7600 #### [facility] of [place] [address] Arcade Game Technician: Jorge Byers MDProtein [Mass/Vol]6.7 g/dLNormal6.1-8.1Quest DiagnosticsComment on above:Performed By: #### 66693, 7600 #### [facility] of [address], [address] [place] [address] Arcade Game Technician: Jorge Byers MDSodium [Moles/Vol]138 mmol/DRnarfb641-978Iydnj DiagnosticsComment on above:Performed By: #### 12475, 7600 #### [facility] of [place] [address] Arcade Game Technician: Jorge Byers MDUrea nitrogen [Mass/Vol]11 mg/dLNormal7-25 [facility] DiagnosticsComment on above:Performed By: #### 67042, 7600 #### [facility] of [place] [address] Arcade Game Technician: Jorge Byers MDLIPID PANEL, STANDARDon 47-49-9935Rejzvgbihop [Mass/Vol]152 mg/dLNormal<200Quest DiagnosticsComment on above:Order Comment: FASTING:YES FASTING: YESPerformed By: #### 98822, 7600 #### [facility] of [place] [address], [address] Arcade Game Technician: Jorge RANGELholesterol in HDL [Mass/Vol]54 mg/dLNormal> OR = 50Quest DiagnosticsComment on above:Order Comment: FASTING:YES FASTING: YESPerformed By: #### 72054, 7600 #### [facility] [address], [address] [place] [address] Arcade Game Technician: Jorge RANGELholesterol in LDL [Mass/Vol]81 mg/dLNormal Quest [...] LDL-C. Mariano PÉREZ et al. ANGELA. 2013;310(19): 6640-7100 (http://education.GCL[employer]S ([employer]).[employer]/faq/RVT482)Performed By: #### 51897, 7600 #### [facility] [address], [address] [place] [address] Arcade Game Technician: Jorge Munguia.total/Cholesterol in HDL [Mass ratio]2.8 {ratio}Normal<5.0Quest DiagnosticsComment on above:Order Comment: FASTING:YES FASTING: YESPerformed By: #### 92887, 7600 #### [facility] [address], [address] [place] [address] Arcade Game Technician: Jorge VALLEJO HDL HNMICZIMNBG28 mg/dL (calc)Normal<130 [facility] DiagnosticsComment on above:Order Comment: FASTING:YES FASTING: YESResult Comment: For patients with diabetes plus 1 major ASCVD risk factor, treating to a non-HDL-C goal of <100 mg/dL (LDL-C of <70 mg/dL) is considered a therapeutic option.Performed By: #### 70183, 7600 #### [facility] [address], [address] [place] [address] Arcade Game Technician: Jorge Byers MDTriglyceride [Mass/Vol]85 mg/dLNormal<150Quest DiagnosticsComment on above:Order Comment: FASTING:YES FASTING: YESPerformed By: #### 20908, 7600 #### [facility] [address], [address] [place] [address] Arcade Game Technician: Jorge Byers MDCovid-19 PCR (CVDTB)on 59-21-4955MBKQ-CoV-2 (COVID-19) RNA JUVE+probe Ql (Unsp spec)Not detectedNormalNOT DETECTEDThe [facility] HospitalComment on above:Result Comment: This test is not yet approved or cleared by the [place] FDA. When there are no FDA-approved or cleared tests available, and other criteria are met, FDA can make tests available under an emergency access mechanism called an Emergency Use Authorization (EUA). The EUA for this test is supported by the [place] of Health and Human Service's (HHS's) declaration [...] consistent with SARS-CoV-2.Performed By: #### CVDTBH #### [facility] [address] [place] [address] Dr. Ivonne MoralesCHLAMYDIA/GONOCOCCUS JUVE (SWAB/URINE/PAPon 57-37-0334Dctkcncyi trachomatis, NAANegativeNormalNegativeOhiohealth Grove City Methodist HospitalComment on above: Performed By: #### CT/NGNA #### [facility] [address] [place] [address] Dr. Yilan ChangNeisseria gonorrhoeae, NAANegativeNormalNegativeOhiohealth Grove City Methodist HospitalComment on above:Performed By: #### CT/NGNA #### [facility] [address] [place] [address] Dr. Ivonne MoralesVAGINITIS/VAGINOSIS DNA PROBEon 70-71-9700Pqzvihz speciesNegative NormalNegativeOhiohealth Grove City Methodist HospitalComment on above:Performed By: #### VAGINT #### [facility] [address] [place] [address] Dr. Ivonne Gallardoerella vaginalisNegativeNormalNegativeOhiohealth Grove City Methodist Hospital Comment on above:Performed By: #### VAGINT #### [facility] [address] [place] [address] Dr. Ivonne MoralesTrichomonas vaginalisNegativeNormalNegativeOhiohealth Grove City Methodist Hospital Comment on above:Performed By: #### VAGINT #### [facility] [address] [place] [address] Dr. Ivonne MoralesCovid-19 PCR ([facility])on 00-81-0529OERQ-CoV-2 (COVID-19) RNA JUVE+probe Ql (Unsp spec)Not detectedNormalNOT DETECTEDOhiohealth Grove City Methodist Hospital Comment on above:Result Comment: This test is not yet approved or cleared by the [place] FDA. When there are no FDA-approved or cleared tests available, and other criteria are met, FDA can make tests available under an emergency access mechanism called an Emergency Use Authorization (EUA). The EUA for this test is supported by the [place] of Health and Human Service's (HHS's) declaration [...] consistent with SARS-CoV-2.Performed By: #### CVDTBH #### [facility] [address] [place], [place] [address] Dr. Ivonne Zimmermand-19 PCR ([facility])on 33-22-2982NVTI-CoV-2 (COVID-19) RNA JUVE+probe Ql (Unsp spec)Not detectedNormalNOT DETECTEDThe [facility] Comment on above:Result Comment: This test is not yet approved or cleared by the [place] FDA. When there are no FDA-approved or cleared tests available, and other criteria are met, FDA can make tests available under an emergency access mechanism called an Emergency Use Authorization (EUA). The EUA for this test is supported by the [place] of Health and Human Service's (HHS's) declaration [...] with SARS-CoV-2.Performed By: #### CVDTB, CVDAGS #### [facility] [address] [place], [place] [address] Osmany KarenSYMPTOMATIC COVID-19 ANTIGENon 06-62-3148ZDA StatementSEE BELOW NormalThe [facility] HospitalComment on above:Result Comment: This test has not [...] revoked sooner.Performed By: #### CVDTBH, CVDAGS #### [facility] [address] [place], [place] [address] Osmany PatiñoNlyonEJLO-VrW-8 (COVID-19) RNA JUVE+probe Ql (Unsp spec)NegativeNormal NEGATIVEThe [facility] HospitalComment on above:Result Comment: CONFIRMATION BY PCR PENDING PER CDC GUIDELINES/ SYMPTOMATIC PATIENT.Performed By: #### CVDTBH, CVDAGS #### [facility] [address] [place], [place] [address] Osmany Medeiros Vital Signs Date TimeVital SignValuePerforming HthoivljrMlomutxi29-34-3210 03:30-0500 Diastolic blood bpwwkwyq05 mm[Hg]Levy Clifford DO Work Phone: [employer] [facility] OhioCDSM Interactive SolutionsJnnivt88-54-8179 03:30-0500Heart rate64 /minJoseph Venessa DO Work Phone: [employer] [facility] OhioCDSM Interactive SolutionsChuagi27-96-2712 03:30-0500 Respiratory rate15 /minJoseph [facility] DO Work Phone: [employer] [facility] CenterHipcamp [facility] Reditc05-39-2577 03:30-8143RsL4% (BldA) [Mass fraction]99 %Levy Clifford DO Work Phone: Bon [employer] [facility]'S HospitalYrjnxw24-41-0768 03:30-0500Systolic blood tnfaylzq127 mm[Hg]Levy Clifford DO Work Phone: [employer] [facility] Cbbyxb55-93-6043 00:30-0400Body txubidbitew33.81 [degF]Levy Clifford [employer] Work Phone: Bon [facility] CenterHipcamp [facility] Jufpck44-56-6458 18:38-0400Body arqzdl745.4 cmPHYSICIAN NO [facility]07-18-2024 18:38-0400Body ychsxcdohqw70 [degF]PHYSICIAN NO [facility]07-18-2024 18:38-0400Body gzigiy04.1 kgPHYSICIAN NO [facility]07-18-2024 18:38-0400Diastolic blood utshppzd70 mm[Hg] PHYSICIAN NO [facility]07-18-2024 18:38-0400Heart rate64 /minPHYSICIAN NO [facility]07-18-2024 18:38-0400Respiratory rate20 /minPHYSICIAN NO [facility]07-18-2024 18:38-6059GzY7% (BldA) [Mass fraction]98 %PHYSICIAN NO [facility]07-18-2024 18:38-0400Systolic blood ukdtsdbb535 mm[Hg]PHYSICIAN NO [facility]05-06-2024 18:07-0400 Body vhkoxj507.4 cmMartin [facility]05-06-2024 18:07-0400Body mass index (BMI) [Ratio]25.4 kg/p9OagrmnzuiMartin Memorial Hospital05-06-2024 18:07-0400Body dgwcajiixyy07.4 [degF][facility]05-06-2024 18:07-0400Body .96 kgMartin Memorial Hospital05-06-2024 18:07-0400Diastolic blood mm[Hg][facility] 07-08-2023 18:07-0400Heart rate80 /[facility] 07-08-2023 18:07-0400Respiratory rate20 /[facility] 07-08-2023 18:07-0007OlY5% (BldA) [Mass fraction]99 %[facility]05-06-2024 18:07-0400Systolic blood zqaqmmjq982 mm[Hg][facility] Encounters Encounter DateEncounter TypeCare ProviderFacilityStart: 01-03-2025 End: 03-06-1586Sfyyaxkxx department patient visitJoseglendy Clifford DO Work Phone: [facility] Emergency DepartmentComment on above: Nausea and vomiting, unspecified vomiting type (Primary Dx); HypokalemiaStart: 09-19-2023 End: 75-61-4600Zoccaqfpg department patient visitPHYSICIAN NO [facility] Work Phone: Start: 07-08-2023 End: 54-61-6438gcqymzhtgfDwbshjhyuSamaritan Hospital Work Phone: Start: 07-08-2023 End: 32-82-8198Khigqpv encounter procedureCentral [facility] Brittaney Work Phone: Start: 09-13-2021 End: 51-64-2092wcuepaiewyOD LOC PALOMINOFacility:M4Ydhig: 06-09-2021 End: 94-39-3169nycdgooqzrVR DENNIS G FURLONGFacility:R9Cekil: 02-27-2021 End: 11-43-5035szeorvrsqbGLWYODL D KATKOFacility:O0Pvrps: 01-03-2021 End: 69-31-9870elvzkfpjjqFA DENNIS G FURLONGFacility:U8Dwffd: 12-07-2020 End: 58-26-7743idsmvobzrxSE OSMAR Torres NIRUFacility:O7Loauz: 10-27-2020 End: 93-83-0514mtctxgmshpCRDLVZ RAUCHFacility:H1 Procedures DateProcedureProcedure DetailPerforming ClinicianStart: 28-99-0699Rwnt tst prsmv instrmnt chem analyzers pr Pancho Liu MD Work Phone: Start: 82-48-4527Fjohe of acetaminophenChico Liu MD Work Phone: Start: 04-31-5272Eikdv of ethanolSerjosé Liu MD Work Phone: Start: 71-86-2642Tdtke of salicylateChico Liu MD Work Phone: Start: 64-95-1151Urkpe metabolic panel calcium total Chicojosé Liu MD Work Phone: Plan of Treatment DateCare ActivityDetailAuthorStart: 21-88-8111RJTDD-19 Vaccine ( season)COVID-19 Vaccine ( season)[facility] HealthcareStart: 75-41-9453Wagrodmpr vaccinationFlu vaccine (#1)[facility]: 59-27-6122XHxC/Tdap/Td vaccine (1 - Tdap)DTaP/Tdap/Td vaccine (1 - Tdap)[facility] EducationPhlebitis (DC)[facility] Work Phone: Patient referralC[facility] Work Phone: Payers DatePayer CategoryPayerPolicy [id number] [id number] 2.0.1.520340.[id number] 2..1.048945.3.57[id number] 2.840.1.057647.3.57[id number] 2.0.1.104092.3.57[id number] 2.0.1.089276.3.57[id number] 2.0.1.751938.3.57[id number] 2.0.1.266633.3.579.2.531 Social History DateTypeDetailFacilityTobacco smoking status NHISUnknown if ever smokedSt. Rita'S Hospital Work Phone: Start: 75-71-4973Zeq Assigned At BirthFeMarietta Memorial Hospitaltart: 68-31-1908Kiygvyv smoking status NHISNever smoked tobacco (finding)[facility] HospitalTobacco smoking status NHIS Tobacco smoking consumption unknownPhoenix Memorial Hospital [employer] [facility] HospitalStart: 01-03-2025 History of Social functionInova Children'S HospitalHipcamp [facility] OhioWorkle [facility] Anne HospitalStart: 85-45-9580Lnbwbjmudkreg Safety Domain Source: IP Abuse ScreeningInova Children'S HospitalHipcamp [facility] OhioWorkle [facility] HospitalPhysical abuse DeniesInova Children'S HospitalReal Estate [employer] [facility] HospitalStart: 12-41-3598Vip assigned at birthNot on file [facility] farmfloStart: 83-71-8735ZgwLdxkkv (finding)Inova Children'S HospitalJuiceBox GamesNEGATED: Highlighted rowMartin Memorial Hospital Hospital Discharge instructions 01-03-2025 Note Date & YvafBsgiYueicebf52-24-4246 Hospital Discharge instructions* Discharge Instructions* Chico Liu [...] other questions or concerns. documented in this encounterPhoenix Memorial Hospital farmflo Evaluation note Note Date & TypeNoteFacilityEvaluation noteNo assessment information available [facility] Work Phone: Evaluation note Note Date & TypeNoteFacilityEvaluation note* Diagnosis Onset Date Resolution Status Tooth infection acute [facility] Work Phone: Evaluation note Note Date & TypeNoteFacilityEvaluation note* Diagnosis Nausea and vomiting, unspecified vomiting type- Primary Hypokalemia Hypopotassemia documented in this encounter [facility] Summary Purpose Family History No Family History [...] CREATED AUTHOR AUTHOR'S ORGANIZ ATION 09/27/2021 [facility] DATE CREATED AUTHOR AUTHOR'S ORGANIZ ATION 12/16/2023 [facility] DATE CREATED AUTHOR AUTHOR'S ORGANIZ ATION 01/04/2025 [facility] Care Teams (unrecognized sec tion and [...] BE BASED ON THE PRIMARY CLINICAL RECORDS. [employer] [facility]. provides no warranty or guarantee of the accuracy or completeness of information in this document.
[2025-01-07 14:50] LABS: Alanine Aminotransferase 18 U/L (14-59); Albumin Globulin Ratio 1.0; Albumin Level 3.6 g/dL (3.4-5.0); Alkaline Phosphatase 59 U/L (46-116); Anion Gap 13.1; Aspartate Amino Transferase 11 U/L (15-37); Blood Urea Nitrogen 10.0 mg/dL (7.0-18.0); Calcium 8.6 mg/dL (8.5-10.1); Carbon Dioxide 28.6 mmol/L (21.0-32.0); Chloride 106 mmol/L (98-107); Estimated GFR (African America >60 (>=60 mL/min/1.73m^2); Estimated GFR (Non-African Ame >60 (>=60 mL/min/1.73m^2); Globulin 3.6 g/dL; Glucose 104 mg/dL (74-106); Potassium 3.7 mmol/L (3.5-5.1); Sodium 144 mmol/L (136-145); Total Protein 7.2 g/dL (6.4-8.2)
== END 2025-01-07 14:04 | disposition home or self-care (01) ==
LOC: LAB 14:03
PROVIDERS: PCP Nurse Practitioner Family; Visit Provider Nurse Practitioner Family
DX: F19.929 Other psychoactive substance use, unspecified with intoxication, unspecified (principal)
CPT/HCPCS: 36415; 80053

== ENCOUNTER 2025-02-06 07:30 | Outpatient (OUT) | payer OTHER, SELFPAY ==
[2025-02-06 07:58] LABS: Hematocrit 37.3 % (36.0-48.0); Hemoglobin 12.5 g/dL (12.0-16.0); Immature Granulocytes Abs Auto 0.01 10^3/uL (0.00-0.03); Immature Granulocytes Pct Auto 0.2 % (0.0-0.5); Lymphocytes Absolute Auto 2.3 10^3/uL (1.2-3.8); Mean Corpuscular HGB Conc 33.5 g/dL (29.9-35.2); Mean Corpuscular Hemoglobin 29.8 pg (26.7-34.0); Mean Corpuscular Volume 88.8 fL (81.0-99.0); Platelet Count 288 10^3/uL (150-450); Red Blood Count 4.20 10^6/uL (4.20-5.40); White Blood Count 6.4 10^3/uL (4.0-11.0)
[2025-02-06 08:26] LABS: Cholesterol 171 mg/dL (<=200); Free T3 2.47 pg/mL (2.18-3.98); HDL Cholesterol 82 mg/dL (40-60); Thyroid Stimulating Hormone 2.860 uIU/mL (0.358-3.740); Triglycerides 42 mg/dL (<=150); VLDL CHOLESTEROL 8.4 mg/dL
[2025-02-06 08:56] LABS: Iron 67.0 ug/dL (50.0-170.0)
[2025-02-07 07:07] LABS: FSH 5.0 mIU/mL (.)
--- OUTSIDE RECORDS SUMMARY | 2025-02-09 10:53 | XMS_ITS | CCD ---
Author Organization [facility] Care Team Providers Care Projection Printer Name Role Phone JOSE, DR BI Thao [...] 500 mg oral capsule (1 source)Cephalosporin AntibacterialStart: 40-86-8441tgwn 500 mg by mouth every eight hoursCephalexin Active 500 MG PO Every 8 hours 30 10 September 19, 2023 12:00amFLUoxetine 20 mg oral capsule (2 sources)Serotonin Reuptake InhibitorStart: 08-35-4278gvoh 1 capsule by mouth once dailyFluoxetine (Prozac) 20 mg capsule Active 20 MG PO Daily July 08, 2023 12:00am Completed/Discontinued Medications MedicationDrug Class(es)DatesSig (Normalized)Sig (Original)amoxicillin 875 mg oral tablet (1 source)Penicillin-class AntibacterialStart: 07-08-2023 End: 46-01-0618xjia 875 mg by mouth twice dailyAmoxicillin Discontinued 875 MG PO Twice daily 20 July 08, 2023 12:00am September 19, 2023 6:38pmLORazepam 0.5 mg oral tablet (1 source)BenzodiazepineStart: 01-03-2025 End: 05-79-4413rlpi 1 dose by mouth once1 mg, Oral, ONCE, 1 dose, On 01/03/25 at 0100Start: 01-03-2025 End: 15-15-8579jkef 1 dose by mouth once1 mg, Oral, ONCE, 1 dose, On 01/03/25 at 0100meclizine hydrochloride 12.5 mg oral tablet (1 source)AntiemeticStart: 01-03-2025 End: 09-95-2573urdx 1 dose by mouth once25 mg, Oral, ONCE, 1 dose, On 01/03/25 at 0100Start: 01-03-2025 End: 27-53-2172cwdq 1 dose by mouth once25 mg, Oral, ONCE, 1 dose, On 01/03/25 at 78476 ml ondansetron 2 mg/ml injection (1 source)Serotonin-3 Receptor AntagonistStart: 01-03-2025 End: mg, IntraVENous, ONCE, 1 dose, On 01/03/25 at 0100Start: 01-03-2025 End: mg, IntraVENous, ONCE, 1 dose, On 01/03/25 at 0100 microencapsulated potassium chloride 20 meq extended release oral tablet (2 sources)Start: 01-03-2025 End: 89-76-319124 mEq, IntraVENous, EVERY HOUR, 2 doses, First [...] of tooth; Translations: [Periapical abscess without sinus] 31-86-8961IunorvxfTroaz and electrolyte disorders (2 sources)Hypokalemia; Translations: [Hypokalemia]Onset: EpisodicImmunizations and screening for infectious disease (6 sources)Encounter for screening for infections with a predominantly sexual mode of transmission; Translations: [Encounter for screening for human papillomavirus (HPV)]Onset: 29-51-9866UtyukpgyOxajry and vomiting (2 sources)Nausea and vomiting; Translations: [Nausea with vomiting, unspecified]Onset: 409113-67-8835KstvcjicOayir skin disorders (1 source)Rash and other nonspecific skin eruption; Translations: [Rash and other nonspecific skin eruption]Onset: 24-67-3485ZibfybnaPvmpugqyj; thrombophlebitis and thromboembolism (1 source)Phlebitis; Translations: [Phlebitis and thrombophlebitis of unspecified site]65-84-2798VgxwybdgJombfelutwzi (3 sources)CONTACT W/AND (SUSP) EXPOS COVID-19; Translations: [CONTACT W/AND (SUSP) EXPOS COVID-19]Onset: 03-02-2021 Past or Other Problems Problem ClassificationProblemDateDocumented DateEpisodic/ChronicOther female genital disorders (4 sources)Other specified noninflammatory disorders of vagina; Translations: [OTH SPEC NONINFLAMMATORY D/O VAGINA]Onset: 20-12-1294VgnutefaTnkmv screening for suspected conditions (not mental disorders or infectious disease) (5 sources)Encounter for screening for malignant neoplasm of cervix; Translations: [Encounter for observation for other suspected diseases and conditions ruled out]Onset: 31-18-1249QxyjftfoDtpysvvqglse (1 source)CONTACT W/AND (SUSP) EXPOS COVID-19; Translations: [CONTACT W/AND (SUSP) EXPOS COVID-19]Onset: 02-27-2021 Results Test NameValueInterpretationReference RangeFacilityAcetaminophenon 01-03-2025 Acetaminophen [Mass/Vol]ug/oJZge22-94Vbjgx [facility] HospitalComment on above:Performed By: #### HCG, ALCB, BMP, ACET, SALI, CDP #### [facility] [address] [place] [address] Prevention Specialist: Mateo Ren MDAcetaminophen Levelon 98-62-8171Ifziyypojspva [Mass/Vol]ug/mLLow10 - 30 ug/mLBon [facility] CompanyInterpretation and review of laboratory resultsAbnormalBon [facility] Executive EmployersBMPon 27-78-3153Hakzy gap [Moles/Vol]19 mmol/LHigh9 - 16 mmol/LBon [facility] HealthCalcium [Mass/Vol] 8.7 mg/dL8.6 - 10.4 mg/dLBon [facility] HealthChloride [Moles/Vol]104 mmol/L 98 - 107 mmol/LBon [facility] HealthCO2 [Moles/Vol]17 mmol/LLow20 - 31 mmol/L Bon [facility] HealthCreatinine [Mass/Vol]0.9 mg/dL0.6 - 0.9 mg/dLBon [facility] Executive EmployersEst, Glom Filt Rate82- PINFBon [facility] CompanyComment on above: These results are not intended [...] that affects renal tubular secretion. Glucose [Mass/Vol]103 mg/iCZfkx56 - 99 mg/dLBon [facility] CenterSmartShoot HealthPotassium [Moles/Vol]3.0 mmol/LLow3.7 - 5.3 mmol/LBon [facility] HealthSodium [Moles/Vol]140 mmol/L136 - 145 mmol/LBon [facility] HospitalUrea nitrogen [Mass/Vol]12 mg/dL6 - 20 mg/dLBon [facility] HospitalBasic Metabolic Profon 78-90-7830Pupwz gap [Moles/Vol]19 mmol/LHigh9-16[facility] Comment on above:Performed By: #### HCG, ALCB, BMP, ACET, SALI, CDP #### [facility] [address] [place] [address] Prevention Specialist: CLAIRE Tangalcium [Mass/Vol]8.7 mg/dLNormal8.6-10.4[facility] HospitalComment on above:Performed By: #### HCG, ALCB, BMP, ACET, SALI, CDP #### [facility] [address] [place] [address] Prevention Specialist: CLAIRE Tanghloride [Moles/Vol]104 mmol/NVryxnc20-072NmfvlKettering Memorial HospitalComment on above:Performed By: #### HCG, ALCB, BMP, ACET, SALI, CDP #### [facility] [address] [place] [address] Prevention Specialist: Mateo Ren MDCO2 [Moles/Vol]17 mmol/EGda45-27CczzbKettering Memorial HospitalComment on above:Performed By: #### HCG, ALCB, BMP, ACET, SALI, CDP #### [facility] [address] [place] [address] Prevention Specialist: CLAIRE Tangreatinine [Mass/Vol]0.9 mg/dLNormal0.6-0.9[facility] HospitalComment on above:Performed By: #### HCG, ALCB, BMP, ACET, SALI, CDP #### [facility] [address] [place] [address] Prevention Specialist: Mateo Ren MDGFR/1.73 sq M.predicted among non-blacks MDRD (S/P/Bld) [Vol rate/Area]82 mL/min/{1.73_m2}Normal>60[facility] HospitalComment on above:Result Comment: These results are [...] HCG, ALCB, BMP, ACET, SALI, CDP #### [facility] [address] [place] [address] Prevention Specialist: Mateo Ren MDGlucose [Mass/Vol]103 mg/iATkqp03-58TjaouChildren's Hospital of San DiegoComment on above:Performed By: #### HCG, ALCB, BMP, ACET, SALI, CDP #### [facility] [address] [place] [address] Prevention Specialist: CATHLEEN Tangotassium [Moles/Vol]3.0 mmol/LLow3.7-5.3MChildren's Hospital of San DiegoComment on above:Performed By: #### HCG, ALCB, BMP, ACET, SALI, CDP #### [facility] [address] [place] [address] Prevention Specialist: REYNA Tangodium [Moles/Vol]140 mmol/QPtsqns514-139IluqbKettering Memorial HospitalComment on above:Performed By: #### HCG, ALCB, BMP, ACET, SALI, CDP #### [facility] [address] [place] [address] Prevention Specialist: Mateo Ren MDUrea nitrogen [Mass/Vol]12 mg/dLNormal6-20[facility] HospitalComment on above:Performed By: #### HCG, ALCB, BMP, ACET, SALI, CDP #### [facility] [address] [place] [address] Prevention Specialist: Mateo Ren [facility] with Auto Differentialon 24-22-6126Moywpchzi (Bld) [#/Vol]0.12 10*3/uLBon Secours Hol[facility] Hospitaly HealthBasophils/100 WBC (Bld)2 %0 - 2 %[facility] Hospitaly HealthEosinophils (Bld) [#/Vol]0.22 10*3/uLBon Secours Mercy HealthEosinophils/100 WBC (Bld)3 %1 - 4 %[facility] Health Erythrocyte distribution width (RBC) [Ratio]12.7 %11.8 - 14.4 %[facility] Hospitaly HealthHematocrit (Bld) [Volume fraction]35.0 %Low36.3 - 47.1 %Bon SecFerry County Memorial Hospitaly HealthHemoglobin (Bld) [Mass/Vol]12.1 g/dL11.9 - 15.1 g/dLBon Secours MercRussell County Medical CenterImmature granulocytes (Bld) [#/Vol][facility] HealthImmature granulocytes/100 WBC (Bld)0 %0[facility] Hospitaly HealthInterpretation and review of laboratory resultsAbnormalBon Secours Mercy HealthLymphocytes/100 WBC (Bld)32 %24 - 43 %[facility] Hospitaly HealthLymphocytes/100 WBC (Bld)2.49 %[facility] Hospitaly [facility] CenterH (RBC) [Entitic mass]29.4 pg25.2 - 33.5 pgBon Secours Holzer Hospitaly [facility] CenterHC (RBC) [Mass/Vol]34.6 g/dL28.4 - 34.8 g/dLBon Secours Holzer Hospitaly [facility] CenterV (RBC) [Entitic vol]85.2 fL82.6 - 102.9 fLBon Secours Mercy HealthMonocytes/100 WBC (Bld)9 %3 - 12 %[facility] HealthMonocytes/100 WBC (Bld)0.68 %[facility] Hospitaly HealthNeutrophils/100 WBC (Bld)54 %36 - 65 %[facility] HealthNucleated RBC/100 WBC (Bld) [Ratio]0.0 %0.0 per 100 WBCBon [facility] HospitalPlatelet mean volume (Bld) [Entitic vol]10.8 fL8.1 - 13.5 fLBon [facility] HospitalPlatelets (Bld) [#/Vol]315 10*3/uLBon [facility] HospitalRBC (Bld) [#/Vol]4.11 10*6/uL3.95 - 5.11 m/uLBon [facility] HospitalSegmented neutrophils/100 WBC (Bld)4.29 %Bon [facility] HospitalWBC other (Bld) [#/Vol] 7.8Bon [facility] CenterCBC with Diffon 01-03-2025 Abs. Basophil0.12 k/uLNormal0.00-0.20[facility] HospitalComment on above:Performed By: #### HCG, ALCB, BMP, ACET, SALI, CDP #### [facility] [address] [place] [address] Prevention Specialist: Nata Tang.Imm.Granulocyte<0.74Bjbqhf9.00-0.30[facility] HospitalComment on above:Performed By: #### HCG, ALCB, BMP, ACET, SALI, CDP #### [facility] [address] [place] [address] Prevention Specialist: Nata Tang.Neutrophil (Seg)4.29 k/uLNormal1.50-8.10 [facility] HospitalComment on above:Performed By: #### HCG, ALCB, BMP, ACET, SALI, CDP #### [facility] [address] [place] [address] Prevention Specialist: Mateo Ren MDBasophils/100 WBC (Bld)2 %Normal0-2MercPalo Verde HospitalComment on above:Performed By: #### HCG, ALCB, BMP, ACET, SALI, CDP #### [facility] [address] [place] [address] Prevention Specialist: Mateo Ren MDEosinophils (Bld) [#/Vol]0.22 10*3/uLNormal 0.00-0.44[facility] HospitalComment on above:Performed By: #### HCG, ALCB, BMP, ACET, SALI, CDP #### [place] [address] Prevention Specialist: Mateo Ren MDEosinophils/100 WBC (Bld)3 %Normal1-4[facility] HospitalComment on above:Performed By: #### HCG, ALCB, BMP, ACET, SALI, CDP #### [facility] [address] [place] [address] Prevention Specialist: Mateo Ren MDErythrocyte distribution width (RBC) [Ratio]12.7 %Vvksjq82.8-14.4[facility] HospitalComment on above:Performed By: #### HCG, ALCB, BMP, ACET, SALI, CDP #### [place] [address] Prevention Specialist: Mateo Ren MDHematocrit (Bld) [Volume fraction]35.0 %Low 36.3-47.1MChildren's Hospital of San DiegoComment on above:Performed By: #### HCG, ALCB, BMP, ACET, SALI, CDP #### [facility] [address] [place] [address] Prevention Specialist: Mateo Ren MDHemoglobin (Bld) [Mass/Vol]12.1 g/dLNormal 11.9-15.1MChildren's Hospital of San DiegoComment on above:Performed By: #### HCG, ALCB, BMP, ACET, SALI, CDP #### [facility] [address] [place] [address] Prevention Specialist: Mateo Ren MDImmature granulocytes/100 WBC (Bld)0 %Normal0 [facility] HospitalComment on above:Performed By: #### HCG, ALCB, BMP, ACET, SALI, CDP #### [facility] [address] [place] [address] Prevention Specialist: Chilango Tangmphocytes (Bld) [#/Vol]2.49 10*3/uLNormal 1.10-3.70[facility] HospitalComment on above:Performed By: #### HCG, ALCB, BMP, ACET, SALI, CDP #### [facility] [address] [place] [address] Prevention Specialist: Dheeraj Tanghocytes/100 WBC (Bld)32 %Obnsgr95-35AoszdKettering Memorial HospitalComment on above:Performed By: #### HCG, ALCB, BMP, ACET, SALI, CDP #### [facility] [address] [place] [address] Prevention Specialist: ESTEBAN Tang (RBC) [Entitic mass]29.4 piLilqkj90.2-33.5 [facility] HospitalComment on above:Performed By: #### HCG, ALCB, BMP, ACET, SALI, CDP #### [facility] [address] [place] [address] Prevention Specialist: ESTEBAN TangC (RBC) [Mass/Vol]34.6 g/cOIlravn97.4-34.8 [facility] HospitalComment on above:Performed By: #### HCG, ALCB, BMP, ACET, SALI, CDP #### [facility] [address] [place] [address] Prevention Specialist: AGUEDA Tang (RBC) [Entitic vol]85.2 oIOidqsx49.6-102.9 [facility] HospitalComment on above:Performed By: #### HCG, ALCB, BMP, ACET, SALI, CDP #### [facility] [address] [place] [address] Prevention Specialist: SATHYA Tangonocytes (Bld) [#/Vol]0.68 10*3/uLNormal 0.10-1.20[facility] HospitalComment on above:Performed By: #### HCG, ALCB, BMP, ACET, SALI, CDP #### [facility] [address] [place] [address] Prevention Specialist: SATHYA Tangonocytes/100 WBC (Bld)9 %Normal3-12[facility] HospitalComment on above:Performed By: #### HCG, ALCB, BMP, ACET, SALI, CDP #### [address] [address] Prevention Specialist: Lu Tangutrophil (Seg)54 %Sbhduk87-16CxznzKettering Memorial HospitalComment on above:Performed By: #### HCG, ALCB, BMP, ACET, SALI, CDP #### [address] [address] Prevention Specialist: Maeto Ren MDNRBC Automated0.0 per 100 WBCNormal0.0[facility] HospitalComment on above:Performed By: #### HCG, ALCB, BMP, ACET, SALI, CDP #### [address] [address] Prevention Specialist: CATHLEEN Tanglatelet mean volume (Bld) [Entitic vol]10.8 fL Normal8.1-13.5[facility] HospitalComment on above:Performed By: #### HCG, ALCB, BMP, ACET, SALI, CDP #### [facility] [address] [place] [address] Prevention Specialist: CATHLEEN Tanglatelets (Bld) [#/Vol]315 10*3/sZUrrdvc215-829 [facility] HospitalComment on above:Performed By: #### HCG, ALCB, BMP, ACET, SALI, CDP #### [address] [address] Prevention Specialist: Mateo Ren [facility] [#/Vol]4.11 10*6/uLNormal3.95-5.11 [facility] HospitalComment on above:Performed By: #### HCG, ALCB, BMP, ACET, SALI, CDP #### [address] [address] Prevention Specialist: Mateo Ren MDST. JOHN'[facility] ([facility]) [#/Vol]7.8 10*3/uLNormal3.5-11.3MChildren's Hospital of San DiegoComment on above:Performed By: #### HCG, ALCB, BMP, ACET, SALI, CDP #### [address] [address] Prevention Specialist: Mateo Ren MDDrug Scr, Abuse, Uron 01-03-2025 Cannabinoid(s),UrPositiveAbrmalNEGKettering Memorial HospitalComment on above:Result Comment: Cutoff: 50 ng/mlPerformed By: #### AME #### [address] [address] Prevention Specialist: Mateo Ren MDInterpretive InfoAssay provides rapid clinical screening only. Presumptive positive results Flower HospitalComment on above:Result Comment: legal purposes should be confirmed by another method. To request confirmation, please call the lab within 7 days of sample submission.Performed By: #### AME #### [facility] [address] [place] [address] Prevention Specialist: Mateo Ren MDAmphetamine(s),UrNegativeNormalNEGKettering Memorial HospitalComment on above:Result Comment: Cutoff: 1000 ng/mL Performed By: #### AME #### [address] [address] Prevention Specialist: Mateo Ren MDBarbiturate(s),UrNegativeNormalNEGKettering Memorial HospitalComment on above:Result Comment: Cutoff: 200 ng/ml Performed By: #### AME #### [address] [address] Prevention Specialist: Mateo Ren MDBenzodiazepine(s)NegativeNormalNEGKettering Memorial HospitalComment on above:Result Comment: Cutoff: 200 ng/ml Performed By: #### AME #### [address] [address] Prevention Specialist: CLAIRE Tangocaine MetaboliteNegativeSelect Medical Specialty Hospital - CincinnatiComment on above:Result Comment: Cutoff: 300 ng/ml Performed By: #### AME #### [address] [address] Prevention Specialist: Monica Tangtanyl, UrineNegativeNormalNEGKettering Memorial HospitalComment on above:Result Comment: Cutoff: 5 ng/mlPerformed By: #### AME #### [address] [address] Prevention Specialist: SATHYA Tangethadone Ql (U)NegativeNormalNEGKettering Memorial HospitalComment on above:Result Comment: Cutoff: 300 ng/ml Performed By: #### AME #### [address] [address] Prevention Specialist: Mateo Ren MDOpiate(s), UrNegativeNoalNEGKettering Memorial HospitalComment on above:Result Comment: Cutoff: 300 ng/mlPerformed By: #### AME #### [address] [address] Prevention Specialist: Mateo Ren MDOxycodone, UrineNegativeNormalNEGKettering Memorial HospitalComment on above:Result Comment: Cutoff: 100 ng/ml Performed By: #### AME #### [facility] [address] [place] [address] [id number] Prevention Specialist: CATHLEEN Tanghencyclidine, UrNegativeNormalNEGKettering Memorial HospitalComment on above:Result Comment: Cutoff: 25 ng/mlPerformed By: #### AME #### [facility] [address] [id number] Prevention Specialist: Mateo Ren MDEthanolon 80-52-4354Jtrxtxi percent0.049 %High NINF - 0.010 %Bon [facility] HospitalEthanolamine [Mass/Vol]49 mg/dLHighNINF - 10 mg/dLBon [facility] HospitalEthanol Alcoholon 21-65-0332Dmwiwjy [Mass/Vol]49 mg/dLHigh<10[facility] HospitalComment on above:Performed By: #### HCG, ALCB, BMP, ACET, SALI, CDP #### [facility] [address] [place] [address] [phone] Prevention Specialist: Mateo Ren MDEthanol percent0.049 %High<0.010[facility] HospitalComment on above:Performed By: #### HCG, ALCB, BMP, ACET, SALI, CDP #### [facility] [address] [phone] Prevention Specialist: Mateo Ren MDHCG Qualitative, Serumon 30-50-0395HQE ( test) QlNegativeNEGATIVELifepoint HealthComment on above: Specimens with hCG levels near the threshold of the test (25 mIU/mL) may give a negative or indeterminate result. In such cases, another test should be performed with a new specimen in 48-72 hours. If early is suspected clinically in this setting, correlation with quantitative serum b-hCG level is suggested. [facility] has confirmed the use of plasma for this test. This has not been cleared or approved by the U.S. Food and Drug Administration. The FDA has determined that such clearance is not necessary. Bon [facility] HospitalHCG Screen, Bloodon 75-98-8109CQN Screen, BloodNegative NormalNEGMerWestside Hospital– Los AngelesComment on above:Result Comment: Specimens with hCG levels near the threshold of the test (25 mIU/mL) may give a negative or indeterminate result. In such cases, another test should be performed with a new specimen in 48-72 hours. If early is suspected clinically in this setting, correlation with quantitative serum b-hCG level is suggested. [facility] has confirmed the use of plasma for this test. This has not been cleared or approved by the U.S. Food and Drug Administration. The FDA has determined that such clearance is not necessary.Performed By: #### HCG, ALCB, BMP, ACET, SALI, CDP #### [facility] [address] [place] [address] Prevention Specialist: Mateo Ren MDNo Panel Informationon 38-17-8962Pyy [facility] HealthInterpretation and review of laboratory resultsAbnormalBon SecGood Samaritan HospitalBon [facility] Arms HospitalSalicylateon 14-00-3824Edhmrsrdavy [Mass/Vol]mg/dL0.0 - 10.0 mg/dLBon Secours Mercy HealthSalicylate<0.5Normal 0.0-10.0[facility] HospitalComment on above:Performed By: #### HCG, ALCB, BMP, ACET, SALI, CDP #### [facility] [address] [place] [address] Prevention Specialist: Mateo Ren MDUrine Drug Screenon 21-06-7966Pvjisvxbnprs Ql (U)NegativeNEGATIVEBon SecWomen's and Children's Hospital HealthComment on above:Cutoff: 1000 ng/mL Barbiturates Screen Ql (U)NegativeNEGATIVEBon Secours Mercy HealthComment on above:Cutoff: 200 ng/mlBenzodiazepines Ql (U)NegativeNEGATIVEBon Secours [facility] Hospitaly HealthComment on above:Cutoff: 200 ng/mlCannabinoids Screen Ql (U)Positive AbnormalNEGATIVEBon Secours [facility]cy HealthComment on above:Cutoff: 50 ng/mlCocaine Ql (U)NegativeNEGATIVEBon [facility] HospitalComment on above:Cutoff: 300 ng/mlfentaNYL Ql (U)NegativeNEGATIVEBon [facility] HospitalComment on above: Cutoff: 5 ng/mlInterpretation and review of laboratory resultsAbnormalBon [facility] HospitalMethadone Ql (U)NegativeNEGATIVEClinch Valley Medical Center Health Comment on above:Cutoff: 300 ng/mlOpiates Screen Ql (U)NegativeNEGATIVEBon [facility] HospitalComment on above:Cutoff: 300 ng/mloxyCODONE Ql (U)Negative NEGATIVEBon [facility] HospitalComment on above:Cutoff: 100 ng/mlPhencyclidine Ql (U)NegativeNEGATIVEInova Mount Vernon Hospitalment on above:Cutoff: 25 ng/ml Test InformationAssay provides rapid clinical screening only. Presumptive positive results for legal purposes should be confirmed by another method. To request confirmation, please call the lab within 7 days of sample submission.Bon [facility] Surgery CenterCHLAMYDIA/GONOCOCCUS JUVE (SWAB/URINE/PAPon 75-44-2590Ltubtxmjo trachomatis, NAANegativeNormalNegativePromedica Memorial HospitalComment on above:Performed By: #### CT/NGNA #### [facility] [address] [place] [address] Dr. Ivonne MoralesNeisseria gonorrhoeae, NAANegativeNormalNegativePromedica Memorial HospitalComment on above:Performed By: #### CT/NGNA #### [facility] [address] [place] [address] Dr. Ivonne MoralesVAGINITIS/VAGINOSIS DNA PROBEon 32-96-6780Esiopvg speciesNegative NormalNegativePromedica Memorial HospitalComment on above:Performed By: #### VAGINT #### [facility] [address] [place] [address] Dr. Ivonne Gallardoerellsherwin vaginalisNegativeNormalNegativePromedica Memorial Hospital Comment on above:Performed By: #### VAGINT #### [facility] [address] [place] [address] Dr. Ivonne Gruberhomonas vaginalisNegativeNormalNegativePromedica Memorial Hospital Comment on above:Performed By: #### VAGINT #### [facility] [address] [address] [address] Ivonne Parsons ACOG PANEL 2: 30 to 63on 06-14-2021..NormalPromedica Memorial HospitalComment on above:Result Comment: Performed at: WBPerformed By: #### CVDTBH, CVDAGS #### [facility] [address] [place] [address] Osmany KarenAge Gdln ACOG Epawjal08-41WtxywqUxnDoctors HospitalComment on above:Performed By: #### CVDTBH, CVDAGS #### [facility] [address] [place] [address] Osmany KarenDIAGNOSIS:CommentJoint Township District Memorial HospitalComment on above:Result Comment: NEGATIVE FOR INTRAEPITHELIAL LESION OR MALIGNANCY. Performed at: WBPerformed By: #### CVDTBH, CVDAGS #### [facility] [address] [place] [address] Osmany KarenHPV AptimaNegativeNormalNegOhioHealth Berger HospitalComment on above:Result Comment: This nucleic acid amplification test detects fourteen high-risk HPV types (16,18,31,33,35,39,45,51,52,56,58,59,66,68) without differentiation. Performed at: =GPerformed By: #### CVDTBH, CVDAGS #### [facility] [address] [place] [address] Osmany KarenMethodology:CommentNoDoctors HospitalComment on above: Result Comment: This liquid based ThinPrep(R) pap test was screened with the use of an image guided system. Performed at: WBPerformed By: #### CVDTBH, CVDAGS #### [facility] [address] [place] [address] Osmany KarenNote:CommentJoint Township District Memorial HospitalComhurley medical center on above:Result Comment: The Pap smear is a screening test designed to aid in the detection of premalignant and malignant conditions of the uterine cervix. It is not a diagnostic procedure and should not be used as the sole means of detecting cervical cancer. Both false-positive and false-negative reports do occur. . Performed at: WBPerformed By: #### CVDTBH, CVDAGS #### [facility] [address] [place] [address] Osmany KarenPerformed by:CommentJoint Township District Memorial HospitalComhurley medical center on above: Result Comment: Stephanie Ballard, Telecom Assistant (ASCP) Performed at: WBPerformed By: #### CVDTBH, CVDAGS #### [facility] [address] [place] [address] Osmany KarenSpecimen adequacy:[facility] on above:Result Comment: Satisfactory for evaluation. No endocervical component is identified. Performed at: WBPerformed By: #### CVDTBH, CVDAGS #### [facility] [address] [place] [address] Osmany KarenCHLAMYDIA/GONOCOCCUS JUVE (SWAB/URINE/PAPon 64-62-1598Imvwdbzgg trachomatis, NAANegativeNormalNegativePromedica Memorial HospitalComment on above: Performed By: #### CT/NGNA #### [facility] [address] [place] [address] Dr. Ivonne MoralesNeisseria gonorrhoeae, NAANegativeNormalNegativeThe [facility] County HospitalComment on above:Performed By: #### CT/NGNA #### [facility] [address] [place] [address] Dr. Ivonne MoralesVAGINITIS/VAGINOSIS DNA PROBEon 82-49-2432Chjiwth speciesNegative NormalNegativeThe [facility] County HospitalComment on above:Performed By: #### VAGINT #### [facility] [address] [place] [address] Dr. Ivonne Cruzdnerella vaginalisPositiveAbnormalNegativePromedica Memorial HospitalComment on above:Performed By: #### VAGINT #### [facility] [address] [place] [address] Dr. Ivonne MoralesTrichomonas vaginalisNegativeNormalNegativePromedica Memorial Hospital Comment on above:Performed By: #### VAGINT #### [facility] [address] [address] [address] Coronado ChangEXTRA URINE SPECIMENon 97-71-4892OJXBCTLXwmyepYysup Diagnostics Comment on above:Result Comment: An extra [...] INCORRECT, PLEASE CONTACT CLIENT SERVICES. PHONE NUMBER: [phone] By: #### XUPB #### [facility] [address] Music Theory Professor: Ana Ocampo M.D. #### [id number] #### [facility]/[address] [place], [place] Music Theory Professor: Kiko Goyal M.D.,PhDEXTRA URINE SPECIMENNormalQuest DiagnosticsComment on above:Performed By: #### XUPB #### [facility] [address] Music Theory Professor: Ana Ocampo M.D. #### 27024 #### [facility]/[place] [address] [place], [place] Music Theory Professor: Kiko Goyal M.D.,PhDSTI INCREASED RISK PANELon 05-02-2021 ASSAY DETAILSNormalQuest DiagnosticsComment on above:Result Comment: TEST NOT PERFORMED No specimen received.Performed By: #### XUPB #### [facility] [address] Music Theory Professor: Ana Ocampo M.D. #### 27463 #### [facility]/[place] [address] [place], [place] Music Theory Professor: Kiko Goyal M.D.,PhDCHLAMYDIA TRACHOMATIS RNA, TMA, UROGENITALNormalQuest DiagnosticsComment on above:Result Comment: URINE MUST BE SUBMITTED IN AN APTIMA TEST NOT PERFORMED No suitable specimen received. Please review the test requirements at [email or web address] By: #### XUPB #### [facility] [address] [place] [id number] Music Theory Professor: Ana Ocampo M.D. #### 58021 #### [facility]/[address] [place], [place] Music Theory Professor: Kiko Goyal M.D.,PhDMYCOPLASMA GENITALIUM, rRNA, TMANormal [facility] DiagnosticsComment on above:Result Comment: URINE NOT ACCEPTABLE TEST NOT PERFORMED No specimen received.Performed By: #### XUPB #### [facility] [address] [address] [facility] [place] [id number] Music Theory Professor: Ana Ocampo M.D. #### 17914 #### [facility]/[address] [place], [place] Music Theory Professor: Kiko Goyal M.D.,PhDSURESWAB(R) TRICHOMONAS VAGINALIS RNA, QL, TMANormalQuest DiagnosticsComment on above:Result Comment: TEST NOT PERFORMED No specimen received.Performed By: #### XUPB #### [facility] [place] [id number] Music Theory Professor: Ana Ocampo M.D. #### 84272 #### [facility]/[place] [id number] [facility] [place], [place] Music Theory Professor: Kiko Goyal M.D.,PhDCOMPREHENSIVE METABOLIC PANELon 00-65-7230Ppiemgf [Mass/Vol]3.9 g/dLNormal3.6-5.1Quest DiagnosticsComment on above:Performed By: #### 57402, 7600 #### [facility] of [address], [address] [place] [address] Music Theory Professor: Jorge Byers MDAlbumin/Globulin [Mass ratio]1.4 {ratio}Normal 1.0-2.5Quest DiagnosticsComment on above:Performed By: #### 42962, 7600 #### [facility] of [address], [address] [place] [address] Music Theory Professor: Jorge Byers MDALP [Catalytic activity/Vol]60 U/IPpyngj39-709 [facility] DiagnosticsComment on above:Performed By: #### 68112, 7600 #### [facility] of [address], [address] [place] [address] Music Theory Professor: Jorge Byers MDALT [Catalytic activity/Vol]10 U/LNormal6-29 [facility] DiagnosticsComment on above:Performed By: #### 11234, 7600 #### [facility] of [place] [address] Music Theory Professor: Jorge Byers MDAST [Catalytic activity/Vol]13 U/JKmkfgo32-43 [facility] DiagnosticsComment on above:Performed By: #### 88796, 7600 #### [facility] of [place] [address] Music Theory Professor: Jorge Byers MDBilirubin [Mass/Vol]0.4 mg/dLNormal0.2-1.2 [facility] DiagnosticsComment on above:Performed By: #### 44108, 7600 #### [facility] of [address], [address] [place] [address] Music Theory Professor: Jorge Byers MDBUN/CREATININE RATIONOT APPLICABLENormal6-22 [facility] DiagnosticsComment on above:Performed By: #### 10534, 7600 #### [facility] of [place] [address] Music Theory Professor: Jorge Byers MDCalcium [Mass/Vol]8.8 mg/dLNormal8.6-10.2Quest DiagnosticsComment on above:Performed By: #### 76724, 7600 #### [facility] of [address], [address] [place] [address] Music Theory Professor: Jorge Byers MDChloride [Moles/Vol]107 mmol/DFbebyo52-465 [facility] DiagnosticsComment on above:Performed By: #### 22998, 7600 #### [facility] of [address], [address] [place] [address] Music Theory Professor: Jorge Byers MDCO2 [Moles/Vol]23 mmol/QOviwsf67-13Kvivl DiagnosticsComment on above:Performed By: #### 10240, 7600 #### [facility] of [place] [address] Music Theory Professor: Jorge RANGELreatinine [Mass/Vol]0.70 mg/dLNormal0.50-1.10 [facility] DiagnosticsComment on above:Performed By: #### 97065, 7600 #### [facility] of [address], [address] [place] [address] Music Theory Professor: Jorge BolesFR NON-AFR. CVSPZJHU818 mL/min/1.33z6Hdmndo> OR = 60Quest DiagnosticsComment on above:Performed By: #### 49805, 7600 #### [facility] of [place] [address] Music Theory Professor: Jorge Byers MDGFR/1.73 sq M.predicted among blacks MDRD (S/P/Bld) [Vol rate/Area]127 mL/min/{1.73_m2}Normal> OR = 60[facility] Comment on above:Performed By: #### 96194, 7600 #### [facility] of [place] [address] Music Theory Professor: Jorge Byers MDGlobulin (S) [Mass/Vol]2.8 g/dLNormal1.9-3.7 [facility] DiagnosticsComment on above:Performed By: #### 75836, 7600 #### [facility] of [place] [address] Music Theory Professor: Jorge Byers MDGlucose [Mass/Vol]87 mg/vEAksyjz97-42Hmmvk DiagnosticsComment on above:Result Comment: Fasting reference intervalPerformed By: #### 08380, 7600 #### [facility] of [address], [address] [place] [address] Music Theory Professor: Jorge Byers MDPotassium [Moles/Vol]4.2 mmol/LNormal3.5-5.3 [facility] DiagnosticsComment on above:Performed By: #### 69336, 7600 #### [facility] of [place] [address] Music Theory Professor: Jorge Byers MDProtein [Mass/Vol]6.7 g/dLNormal6.1-8.1Quest DiagnosticsComment on above:Performed By: #### 22663, 7600 #### [facility] of [address], [address] [place] [address] Music Theory Professor: Jorge Byers MDSodium [Moles/Vol]138 mmol/BJkucwj288-515Rnoce DiagnosticsComment on above:Performed By: #### 57625, 7600 #### [facility] of [place] [address] Music Theory Professor: Jorge Byers MDUrea nitrogen [Mass/Vol]11 mg/dLNormal7-25 [facility] DiagnosticsComment on above:Performed By: #### 69831, 7600 #### [facility] of [place] [address] Music Theory Professor: Jorge Byers MDLIPID PANEL, STANDARDon 66-33-4974Ssxfldvubjt [Mass/Vol]152 mg/dLNormal<200Quest DiagnosticsComment on above:Order Comment: FASTING:YES FASTING: YESPerformed By: #### 06193, 7600 #### [facility] of [place] [address], [address] Music Theory Professor: Jorge RANGELholesterol in HDL [Mass/Vol]54 mg/dLNormal> OR = 50Quest DiagnosticsComment on above:Order Comment: FASTING:YES FASTING: YESPerformed By: #### 51467, 7600 #### [facility] [address], [address] [place] [address] Music Theory Professor: Jorge RANGELholesterol in LDL [Mass/Vol]81 mg/dLNormal Quest [...] LDL-C. Mariano PÉREZ et al. ANGELA. 2013;310(19): 8815-1828 (http://[email or web address].cn.Codefast/faq/NYY008)Performed By: #### 24287, 7600 #### [facility] [address], [address] [place] [address] Music Theory Professor: Jorge Munguia.total/Cholesterol in HDL [Mass ratio]2.8 {ratio}Normal<5.0Quest DiagnosticsComment on above:Order Comment: FASTING:YES FASTING: YESPerformed By: #### 99110, 7600 #### [facility] [address], [address] [place] [address] Music Theory Professor: Jorge VALLEJO HDL UGFWDHLQEFW77 mg/dL (calc)Normal<130 [facility] DiagnosticsComment on above:Order Comment: FASTING:YES FASTING: YESResult Comment: For patients with diabetes plus 1 major ASCVD risk factor, treating to a non-HDL-C goal of <100 mg/dL (LDL-C of <70 mg/dL) is considered a therapeutic option.Performed By: #### 04141, 7600 #### [facility] [address], [address] [place] [address] Music Theory Professor: Jorge Byers MDTriglyceride [Mass/Vol]85 mg/dLNormal<150Quest DiagnosticsComment on above:Order Comment: FASTING:YES FASTING: YESPerformed By: #### 72360, 7600 #### [facility] [address], [address] [place] [address] Music Theory Professor: Jorge Byers MDCovid-19 PCR (CVDTB)on 70-76-7874EJKC-CoV-2 (COVID-19) RNA JUVE+probe Ql (Unsp spec)Not detectedNormalNOT DETECTEDThe [facility] County HospitalComment on above:Result Comment: This test is not yet approved or cleared by the [place] FDA. When there are no FDA-approved or cleared tests available, and other criteria are met, FDA can make tests available under an emergency access mechanism called an Emergency Use Authorization (EUA). The EUA for this test is supported by the [place] of Health and Human Service's (HHS's) declaration [...] consistent with SARS-CoV-2.Performed By: #### CVDTBH #### [facility] [address] [place] [address] Dr. Ivonne MoralesCHLAMYDIA/GONOCOCCUS JUVE (SWAB/URINE/PAPon 17-71-8026Fbpjudfut trachomatis, NAANegativeNormalNegativePromedica Memorial HospitalComment on above: Performed By: #### CT/NGNA #### [facility] [address] [place] [address] Dr. Yilan ChangNeisseria gonorrhoeae, NAANegativeNormalNegativePromedica Memorial HospitalComment on above:Performed By: #### CT/NGNA #### [facility] [address] [place] [address] Dr. Ivonne MoralesVAGINITIS/VAGINOSIS DNA PROBEon 30-83-7580Umajmeu speciesNegative NormalNegativePromedica Memorial HospitalComment on above:Performed By: #### VAGINT #### [facility] [address] [place] [address] Dr. Ivonne Gallardoerella vaginalisNegativeNormalNegativePromedica Memorial Hospital Comment on above:Performed By: #### VAGINT #### [facility] [address] [place] [address] Dr. Ivonne MoralesTrichomonas vaginalisNegativeNormalNegativePromedica Memorial Hospital Comment on above:Performed By: #### VAGINT #### [facility] [address] [place] [address] Dr. Ivonne MoralesCovid-19 PCR ([facility])on 14-55-5495FENH-CoV-2 (COVID-19) RNA JUVE+probe Ql (Unsp spec)Not detectedNormalNOT DETECTEDPromedica Memorial Hospital Comment on above:Result Comment: This test is not yet approved or cleared by the [place] FDA. When there are no FDA-approved or cleared tests available, and other criteria are met, FDA can make tests available under an emergency access mechanism called an Emergency Use Authorization (EUA). The EUA for this test is supported by the [place] of Health and Human Service's (HHS's) declaration [...] consistent with SARS-CoV-2.Performed By: #### CVDTBH #### [facility] [address] [place], [place] [address] Dr. Ivonne Zimmermand-19 PCR ([facility])on 89-86-7062XZCR-CoV-2 (COVID-19) RNA JUVE+probe Ql (Unsp spec)Not detectedNormalNOT DETECTEDThe [facility] Comment on above:Result Comment: This test is not yet approved or cleared by the [place] FDA. When there are no FDA-approved or cleared tests available, and other criteria are met, FDA can make tests available under an emergency access mechanism called an Emergency Use Authorization (EUA). The EUA for this test is supported by the [place] of Health and Human Service's (HHS's) declaration [...] with SARS-CoV-2.Performed By: #### CVDTB, CVDAGS #### [facility] [address] [place], [place] [address] Osmany KarenSYMPTOMATIC COVID-19 ANTIGENon 28-98-8447DRV StatementSEE BELOW NormalThe [facility] HospitalComment on above:Result Comment: This test has [...] revoked sooner.Performed By: #### CVDTBH, CVDAGS #### [facility] [address] [place], [place] [address] Osmany PatiñoDswagTFLM-ZdV-2 (COVID-19) RNA JUVE+probe Ql (Unsp spec)NegativeNormal NEGATIVEThe [facility] HospitalComment on above:Result Comment: CONFIRMATION BY PCR PENDING PER CDC GUIDELINES/ SYMPTOMATIC PATIENT.Performed By: #### CVDTBH, CVDAGS #### [facility] [address] [place], [place] [address] Osmany Medeiros Vital Signs Date TimeVital SignValuePerforming HieirjwuuOmofejom86-12-2444 03:30-0500 Diastolic blood dddyghjz57 mm[Hg]Levy Clifford DO Work Phone: [employer] [facility] HospitalHartman WrightJkibax52-75-1322 03:30-0500Heart rate64 /minJoseph Venessa DO Work Phone: [employer] [facility] HospitalHartman WrightTcavgk79-85-2342 03:30-0500 Respiratory rate15 /minJoseph [facility] DO Work Phone: Knowledgestreem [facility] CenterChina [employer] [facility] Rjabjq07-09-0156 03:30-8428GqQ8% (BldA) [Mass fraction]99 %Levy Clifford DO Work Phone: [employer] [facility] HospitalVduzfp08-48-7967 03:30-0500Systolic blood wetcfcct504 mm[Hg]Levy Clifford DO Work Phone: [employer] [facility] Mhgxpd84-18-7194 00:30-0400Body gusedfbjvrh89.81 [degF]Levy Clifford Webymaster Work Phone: Bon [facility] CenterChina [employer] [facility] Jvjaqh78-92-9795 18:38-0400Body euzeqv649.4 cmPHYSICIAN NO [facility]07-18-2024 18:38-0400Body ggwdweyqeaw92 [degF]PHYSICIAN NO [facility]07-18-2024 18:38-0400Body qetbuu89.1 kgPHYSICIAN NO [facility]07-18-2024 18:38-0400Diastolic blood mm[Hg] PHYSICIAN NO [facility]07-18-2024 18:38-0400Heart rate64 /minPHYSICIAN NO [facility]07-18-2024 18:38-0400Respiratory rate20 /minPHYSICIAN NO [facility]07-18-2024 18:38-3799CgH4% (BldA) [Mass fraction]98 %PHYSICIAN NO [facility]07-18-2024 18:38-0400Systolic blood mm[Hg]PHYSICIAN NO [facility]05-06-2024 18:07-0400 Body ewqghx401.4 cmC[facility]innati [facility]05-06-2024 18:07-0400Body mass index (BMI) [Ratio]25.4 kg/k7WcxslgoncCincinnati Shriners Hospital05-06-2024 18:07-0400Body nrnswphhvuh11.4 [degF][facility]05-06-2024 18:07-0400Body iyzcbw26.96 kgCincinnati Shriners Hospital05-06-2024 18:07-0400Diastolic blood cyfbyvbu28 mm[Hg][facility] 07-08-2023 18:07-0400Heart rate80 /[facility] 07-08-2023 18:07-0400Respiratory rate20 /[facility] 07-08-2023 18:07-8091ScV6% (BldA) [Mass fraction]99 %[facility]05-06-2024 18:07-0400Systolic blood biqoznlg196 mm[Hg][facility] Encounters Encounter DateEncounter TypeCare ProviderFacilityStart: 01-03-2025 End: 11-57-6570Zbjhtvpwi department patient visitJoseglendy Clifford DO Work Phone: [facility] Emergency DepartmentComment on above: Nausea and vomiting, unspecified vomiting type (Primary Dx); HypokalemiaStart: 09-19-2023 End: 59-03-8579Qbsauenzz department patient visitPHYSICIAN NO [facility] Work Phone: Start: 07-08-2023 End: 22-20-7026awoiemcxftEipljfppeMetroHealth [facility] Center Work Phone: Start: 07-08-2023 End: 57-21-6193Sikkksi encounter procedureSentara [facility] Brittaney Work Phone: Start: 09-13-2021 End: 48-08-4361wyaluntupqHP LOC PALOMINOFacility:V6Demul: 06-09-2021 End: 73-68-8304exrctlfwmjYF DENNIS G FURLONGFacility:A7Icxda: 02-27-2021 End: 80-94-5431gykdjuksbaEZPLFSL D KATKOFacility:A5Crqri: 01-03-2021 End: 36-67-4520vozzpiwjelWG DENNIS G FURLONGFacility:G4Phyjw: 12-07-2020 End: 81-88-4943xpdljkdxtlGV OSMAR Torres NIRUFacility:U8Rhgsr: 10-27-2020 End: 22-18-9374cdiqpjrjzqKXRKTW RAUCHFacility:H1 Procedures DateProcedureProcedure DetailPerforming ClinicianStart: 87-70-6564Vxsv tst prsmv instrmnt chem analyzers pr Pancho Liu MD Work Phone: Start: 94-00-5877Rujab of acetaminophenChico Liu MD Work Phone: Start: 58-64-0432Uhfoy of ethanolSerjosé Liu MD Work Phone: Start: 57-54-4001Zazej of salicylateChico Liu MD Work Phone: Start: 01-11-8793Lnnrr metabolic panel calcium total Chicojosé Liu MD Work Phone: Plan of Treatment DateCare ActivityDetailAuthorStart: 20-81-5514XWAFC-19 Vaccine ( season)COVID-19 Vaccine ( season)[facility] HealthStart: 56-91-9270Yofmxhtju vaccinationFlu vaccine (#1)[facility]: 43-00-5157FZvL/Tdap/Td vaccine (1 - Tdap)DTaP/Tdap/Td vaccine (1 - Tdap)[facility] EducationPhlebitis (DC)[facility] Work Phone: Patient referralUniversity Hospitals Beachwood [facility] Work Phone: Payers DatePayer CategoryPayerPolicy [id number] [id number] 2.0.1.238552.3.57[id number] 2..1.356058.3.57[id number] 2.840.1.635024.3.57[id number] 2.0.1.185528.3.57[id number] 2.0.1.662049.3.57[id number] 2.0.1.247461.3.57[id number] 2.0.1.009784.3.579.2.531 Social History DateTypeDetailFacilityTobacco smoking status NHISUnknown if ever smokedWyandot Memorial Hospital Work Phone: Start: 38-99-3123Ygw Assigned At BirthFePaulding County Hospitaltart: 10-91-7167Unbkfeg smoking status NHISNever smoked tobacco (finding)[facility] HospitalTobacco smoking status NHIS Tobacco smoking consumption unknownSierra [facility] [employer] Electronic Cigarette [facility] CompanyStart: 01-03-2025 History of Social functionHenrico Doctors' Hospital—Parham CampusChina [employer] Hol[facility] HospitalEcube Labs [facility] CompanyStart: 73-60-5588Zjcobqqnfnzfq Safety Domain Source: IP Abuse ScreeningHenrico Doctors' Hospital—Parham CampusChina [employer] Holzer HospitalEcube Labs [facility] CompanyPhysical abuse DeniesHenrico Doctors' Hospital—Parham CampusSmartShoot [facility] CompanyStart: 60-93-6980Vyq assigned at birthNot on file [facility] [email or web address]: 77-43-2627PevUhsoze (finding)[facility]—Par[facility] CampusBIC Science and TechnologyNEGATED: Highlighted rowCincinnati Shriners Hospital Hospital Discharge instructions 01-03-2025 Note Date & ShwyMyvgQuhaanks01-75-5172 Hospital Discharge instructions* Discharge Instructions* Chico Liu [...] other questions or concerns. documented in this encounterSierra [email or web address] [email or web address] Evaluation note Note Date & TypeNoteFacilityEvaluation noteNo assessment information available [facility] Work Phone: Evaluation note Note Date & TypeNoteFacilityEvaluation note* Diagnosis Onset Date Resolution Status Tooth infection acute [facility] Work Phone: Evaluation note Note Date [...] CREATED AUTHOR AUTHOR'S ORGANIZ ATION 09/27/2021 [facility] DATE CREATED AUTHOR AUTHOR'S ORGANIZ ATION 12/16/2023 [facility] DATE CREATED AUTHOR AUTHOR'S ORGANIZ ATION 01/04/2025 [facility] Care Teams (unrecognized sec tion and [...] BE BASED ON THE PRIMARY CLINICAL RECORDS. [employer] [facility]. provides no warranty or guarantee of the accuracy or completeness of information in this document.
== END 2025-02-06 07:31 | disposition home or self-care (01) ==
LOC: LAB 02-09 10:48
PROVIDERS: PCP Nurse Practitioner Family; Visit Provider Nurse Practitioner Family
DX: Z00.00 Encounter for general adult medical examination without abnormal findings (principal); N92.6 Irregular menstruation, unspecified
CPT/HCPCS: 36415; 80061; 82306; 82679; 83001; 83036; 83525; 83540; 84144; 84146; 84436; 84443; 84481; 85025